=== PATIENT | male | born 1970 | race African-American/Black ===

== ENCOUNTER 2017-08-09 21:37 | Emergency (ER) | payer MEDICAID ==
[~2017-08-09] VITALS: Ht 177.8 cm; Wt 118.0 kg
[~2017-08-09 21:37] MED LIST: ASPI-1159 PO; FAMO20TA8 PO
[2017-08-10] MEDS ORDERED: SODIUM CHLORIDE 0.9% 1,000 ML IV ONE (00:08)
[2017-08-10] MEDS ORDERED: MORPHINE SULFATE 4 MG/ML CPJ (NOT FOR IM USE) IV STA (00:08)
[2017-08-10] MEDS ORDERED: ONDANSETRON HCL 4MG/2ML VIAL IV STA (00:08)
[2017-08-10] MEDS ORDERED: TETANUS, DIPHTHERIA, PERTUSSIS VAC/PF 0.5ML (>7YR OLD) IM ONE (00:15)
[2017-08-10] MEDS ORDERED: CEFAZOLIN 1000MG PREMIX 50 ML IV ONE (00:15)
[2017-08-10 00:51] LABS: BASOPHILS % 0.9 % (0.0-2.0); CHLORIDE 107 mEq/L (98-107); EOSINOPHILS % 1.1 % (0.0-5.0); HEMATOCRIT. 39.8 % (42.0-52.0); HEMOGLOBIN. 13.8 g/dL (14.0-18.0); MEAN CORPUSCULAR HEMOGLOBIN 29.9 pg (28.0-32.0); MEAN CORPUSCULAR VOLUME 86.5 fL (80.0-94.0); MEAN PLATELET VOLUME 9.6 fl (7.4-10.4); MONOCYTES % 6.9 % (2.0-8.0); NEUTROPHILS % 57.1 % (40.0-76.0); PLATELET 246 x1000/uL (130-400); RED BLOOD CELL COUNT 4.61 mill/uL (4.7-6.1); RED CELL DISTRIBUTION WIDTH 13.4 % (11.6-14.6)
[2017-08-10 11:07] VITALS: BP 144/84
== END 2017-08-10 11:09 | disposition home or self-care (01) ==
LOC: ER 21:37
DX: S02.2XXA Fracture of nasal bones, initial encounter for closed fracture (principal); S01.511A Laceration without foreign body of lip, initial encounter; S03.2XXA Dislocation of tooth, initial encounter; I10 Essential (primary) hypertension; F32.9 Major depressive disorder, single episode, unspecified; F10.20 Alcohol dependence, uncomplicated; Y09 Assault by unspecified means; Z79.82 Long term (current) use of aspirin; Y93.89 Activity, other specified; Y92.89 Other specified places as the place of occurrence of the external cause; Y99.8 Other external cause status
CPT/HCPCS: 36415; 70450; 70486; 71045; 72125; 80053; 85025; 90471; 90715; 96365; 96375; 99291; J0690; J2270; J2405; J7030; Z7610

== ENCOUNTER 2017-10-18 18:25 | Emergency (ER) | payer MEDICAID ==
[~2017-10-18] VITALS: Ht 177.8 cm; Wt 118.0 kg
[2017-10-18 21:13] LABS: BASOPHILS % 1.5 % (0.0-2.0); EOSINOPHILS % 1.5 % (0.0-5.0); HEMATOCRIT. 39.6 % (42.0-52.0); LYMPHOCYTES % 40.2 % (20.0-50.0); MEAN CORPUSCULAR HEMOGLOBIN 27.9 pg (28.0-32.0); MEAN CORPUSCULAR VOLUME 84.8 fL (80.0-94.0); MEAN PLATELET VOLUME 9.5 fl (7.4-10.4); MONOCYTES % 11.3 % (2.0-8.0); NEUTROPHILS % 45.5 % (40.0-76.0); PLATELET 192 x1000/uL (130-400); RED BLOOD CELL COUNT 4.67 mill/uL (4.7-6.1); RED CELL DISTRIBUTION WIDTH 14.7 % (11.6-14.6)
[2017-10-18 21:16] LABS: CHLORIDE 103 mEq/L (98-107)
[2017-10-18 21:20] LABS: ETHANOL BLOOD 128 mg/dL
[2017-10-19 00:02] VITALS: BP 152/90
== END 2017-10-19 00:02 | disposition home or self-care (01) ==
LOC: ER 20:31
DX: R07.9 Chest pain, unspecified (principal); I10 Essential (primary) hypertension; F17.200 Nicotine dependence, unspecified, uncomplicated; J98.11 Atelectasis; Z79.82 Long term (current) use of aspirin
CPT/HCPCS: 36415; 71045; 80053; 84484; 85025; 85379; 93005; 99285; G0482; Z7610

== ENCOUNTER 2017-10-28 05:43 | Emergency (ER) | payer MEDICAID ==
[~2017-10-28] VITALS: Ht 188 cm; Wt 91.0 kg
[2017-10-28] MEDS ORDERED: SODIUM CHLORIDE 0.9% 1,000 ML IV ONE (07:01)
[2017-10-28 07:36] LABS: BASOPHILS % 1.7 % (0.0-2.0); EOSINOPHILS % 3.1 % (0.0-5.0); HEMATOCRIT. 41.2 % (42.0-52.0); HEMOGLOBIN. 13.5 g/dL (14.0-18.0); LYMPHOCYTES % 40.1 % (20.0-50.0); MEAN CORPUSCULAR HEMOGLOBIN 28.1 pg (28.0-32.0); MEAN CORPUSCULAR VOLUME 85.6 fL (80.0-94.0); MEAN PLATELET VOLUME 9.2 fl (7.4-10.4); NEUTROPHILS % 42.1 % (40.0-76.0); PLATELET 165 x1000/uL (130-400); RED BLOOD CELL COUNT 4.82 mill/uL (4.7-6.1); RED CELL DISTRIBUTION WIDTH 15.5 % (11.6-14.6)
[2017-10-28 07:51] LABS: CHLORIDE 107 mEq/L (98-107)
[2017-10-28 07:57] LABS: ETHANOL BLOOD 141 mg/dL
[2017-10-28 08:31] LABS: CLARITY URINE CLEAR (CLEAR); COLOR URINE YELLOW (YELLOW); KETONES URINE TRACE (NEGATIVE); LEUKOCYTE ESTERASE URINE NEGATIVE (NEGATIVE); NITRITE URINE NEGATIVE (NEGATIVE); OCCULT BLOOD URINE NEGATIVE (NEGATIVE); PROTEIN URINE NEGATIVE (NEGATIVE); UROBILINOGEN URINE 0.2 E.U./dL (0.2-1.0)
[2017-10-28 08:58] LABS: *AMPHETAMINES SCREEN URINE NEGATIVE (NEGATIVE)
[2017-10-28 08:59] LABS: *BARBITURATES SCREEN URINE NEGATIVE (NEGATIVE); *BENZODIAZEPINES SCREEN URINE NEGATIVE (NEGATIVE); *COCAINE SCREEN URINE NEGATIVE (NEGATIVE); METHADONE URINE SCREEN NEGATIVE (NEGATIVE); OPIATES URINE SCREEN NEGATIVE (NEGATIVE); PHENCYCLIDINE URINE SCREEN NEGATIVE (NEGATIVE)
[2017-10-28 09:00] LABS: CANNABINOID URINE SCREEN NEGATIVE (NEGATIVE)
[2017-10-28] MEDS ORDERED: KETOROLAC 30MG/ML VIAL IV STA (09:42)
[2017-10-28 11:17] VITALS: BP 144/90
== END 2017-10-28 11:36 | disposition home or self-care (01) ==
LOC: ER 05:57
DX: F10.10 Alcohol abuse, uncomplicated (principal); Y90.6 Blood alcohol level of 120-199 mg/100 ml; M79.1 Myalgia; F15.10 Other stimulant abuse, uncomplicated; F12.90 Cannabis use, unspecified, uncomplicated; F17.210 Nicotine dependence, cigarettes, uncomplicated; I10 Essential (primary) hypertension; Z98.890 Other specified postprocedural states
CPT/HCPCS: 36415; 71045; 80053; 80305; 80307; 80329; 81003; 84484; 85025; 93005; 96374; 99285; G0482; J1885; J7030; Z7610

== ENCOUNTER 2017-10-30 11:38 | Emergency (ER) | payer MEDICAID ==
[~2017-10-30] VITALS: Ht 177.8 cm; Wt 88.0 kg
[2017-10-30 12:22] LABS: BASOPHILS % 1.1 % (0.0-2.0); EOSINOPHILS % 1.6 % (0.0-5.0); HEMATOCRIT. 37.7 % (42.0-52.0); HEMOGLOBIN. 12.4 g/dL (14.0-18.0); LYMPHOCYTES % 41.6 % (20.0-50.0); MEAN CORPUSCULAR HEMOGLOBIN 27.9 pg (28.0-32.0); MEAN CORPUSCULAR VOLUME 84.5 fL (80.0-94.0); MEAN PLATELET VOLUME 9.1 fl (7.4-10.4); MONOCYTES % 9.5 % (2.0-8.0); NEUTROPHILS % 46.2 % (40.0-76.0); PLATELET 198 x1000/uL (130-400); RED BLOOD CELL COUNT 4.46 mill/uL (4.7-6.1); RED CELL DISTRIBUTION WIDTH 15.9 % (11.6-14.6)
[2017-10-30 12:28] LABS: CHLORIDE 107 mEq/L (98-107)
[2017-10-30 12:32] LABS: ETHANOL BLOOD 243 mg/dL; INR 1.1; PARTIAL THROMBOPLASTIN TIME 25.5 sec (23.4-31.0); PROTHROMBIN TIME 11.7 sec (9.4-11.6)
[2017-10-30] MEDS ORDERED: SODIUM CHLORIDE 0.9% 1,000 ML IV ONE (12:46)
[2017-10-30] MEDS ORDERED: ONDANSETRON HCL 4MG/2ML VIAL IV STA (12:46)
[2017-10-30 14:22] LABS: *AMPHETAMINES SCREEN URINE NEGATIVE (NEGATIVE); *BARBITURATES SCREEN URINE NEGATIVE (NEGATIVE); *BENZODIAZEPINES SCREEN URINE NEGATIVE (NEGATIVE); *COCAINE SCREEN URINE NEGATIVE (NEGATIVE)
[2017-10-30 14:23] LABS: CANNABINOID URINE SCREEN NEGATIVE (NEGATIVE); METHADONE URINE SCREEN NEGATIVE (NEGATIVE); OPIATES URINE SCREEN NEGATIVE (NEGATIVE); PHENCYCLIDINE URINE SCREEN NEGATIVE (NEGATIVE)
[2017-10-30 17:38] VITALS: BP 132/68
== END 2017-10-30 17:54 | disposition home or self-care (01) ==
LOC: ER 11:38
DX: T51.0X1A Toxic effect of ethanol, accidental (unintentional), initial encounter (principal); G92 Toxic encephalopathy; R07.89 Other chest pain; J98.11 Atelectasis; I10 Essential (primary) hypertension; D64.9 Anemia, unspecified; D72.819 Decreased white blood cell count, unspecified; E83.51 Hypocalcemia; R73.9 Hyperglycemia, unspecified; E46 Unspecified protein-calorie malnutrition; F17.200 Nicotine dependence, unspecified, uncomplicated; Y90.8 Blood alcohol level of 240 mg/100 ml or more; Z68.27 Body mass index [BMI] 27.0-27.9, adult; Y92.89 Other specified places as the place of occurrence of the external cause
CPT/HCPCS: 36415; 71045; 80053; 80305; 83690; 83880; 84484; 85025; 85610; 85730; 93005; 96374; 99285; G0482; J7030

== ENCOUNTER 2017-10-31 00:09 | Emergency (ER) | payer MEDICAID ==
[~2017-10-31] VITALS: Ht 177.8 cm; Wt 113.0 kg
[2017-10-31] MEDS ORDERED: ONDANSETRON HCL 4MG/2ML VIAL IV ONE (02:15)
[2017-10-31] MEDS ORDERED: SODIUM CHLORIDE 0.9% 1,000 ML IV ONE (02:15)
[2017-10-31 05:00] VITALS: BP 113/80
== END 2017-10-31 06:14 | disposition home or self-care (01) ==
LOC: ER 00:09
DX: F10.229 Alcohol dependence with intoxication, unspecified (principal); I10 Essential (primary) hypertension; Y90.8 Blood alcohol level of 240 mg/100 ml or more; Z79.82 Long term (current) use of aspirin
CPT/HCPCS: 36415; 96374; 99284; G0482; J2405; J7030; Z7610

== ENCOUNTER 2017-11-08 19:19 | Emergency (ER) | payer MEDICAID ==
[~2017-11-08] VITALS: Ht 180.3 cm; Wt 100.0 kg
[2017-11-08] MEDS ORDERED: IBUPROFEN 600MG TABLET PO ONE (20:45)
[2017-11-08 21:11] VITALS: BP 148/88
== END 2017-11-09 07:04 | disposition home or self-care (01) ==
LOC: ER 19:19
DX: F10.129 Alcohol abuse with intoxication, unspecified (principal); Y90.4 Blood alcohol level of 80-99 mg/100 ml; I10 Essential (primary) hypertension
CPT/HCPCS: 36415; 99283; G0482

== ENCOUNTER 2017-11-11 10:37 | Emergency (ER) | payer MEDICAID ==
[~2017-11-11] VITALS: Ht 175.3 cm; Wt 114.0 kg
[2017-11-11] MEDS ORDERED: SODIUM CHLORIDE 0.9% 1,000 ML IV ONE (10:57)
[2017-11-11 11:36] LABS: BASOPHILS % 1.5 % (0.0-2.0); EOSINOPHILS % 2.8 % (0.0-5.0); HEMATOCRIT. 36.1 % (42.0-52.0); HEMOGLOBIN. 11.9 g/dL (14.0-18.0); LYMPHOCYTES % 35.8 % (20.0-50.0); MEAN CORPUSCULAR HEMOGLOBIN 28.1 pg (28.0-32.0); MEAN CORPUSCULAR VOLUME 85.1 fL (80.0-94.0); MEAN PLATELET VOLUME 9.1 fl (7.4-10.4); MONOCYTES % 13.7 % (2.0-8.0); NEUTROPHILS % 46.2 % (40.0-76.0); PLATELET 214 x1000/uL (130-400); RED BLOOD CELL COUNT 4.24 mill/uL (4.7-6.1); RED CELL DISTRIBUTION WIDTH 16.9 % (11.6-14.6)
[2017-11-11 11:39] LABS: CHLORIDE 111 mEq/L (98-107)
[2017-11-11 11:41] LABS: INR 1.2; PARTIAL THROMBOPLASTIN TIME 25.4 sec (23.4-31.0)
[2017-11-11 13:55] VITALS: BP 146/75
== END 2017-11-11 14:00 | disposition left against medical advice (07) ==
LOC: ER 10:55
DX: R07.89 Other chest pain (principal); I10 Essential (primary) hypertension; F10.20 Alcohol dependence, uncomplicated; Y90.9 Presence of alcohol in blood, level not specified
CPT/HCPCS: 36415; 71045; 80053; 83690; 84484; 85025; 85610; 85730; 93005; 99285; J7030

== ENCOUNTER 2017-11-13 16:44 | Emergency (ER) | payer MEDICAID ==
[~2017-11-13] VITALS: Ht 185.4 cm; Wt 107.0 kg
[2017-11-13 16:56] VITALS: BP 119/72
== END 2017-11-13 20:45 | disposition left against medical advice (07) ==
LOC: ER 18:00
DX: F10.239 Alcohol dependence with withdrawal, unspecified (principal); Z53.21 Procedure and treatment not carried out due to patient leaving prior to being seen by health care provider

== ENCOUNTER 2017-11-14 08:56 | Emergency (ER) | payer MEDICAID ==
[~2017-11-14] VITALS: Ht 175.3 cm; Wt 100.0 kg
[2017-11-14] MEDS ORDERED: SODIUM CHLORIDE 0.9% 1,000 ML IV ONE (09:30)
[2017-11-14 09:41] LABS: BASOPHILS % 0.3 % (0.0-2.0); EOSINOPHILS % 2.4 % (0.0-5.0); HEMATOCRIT. 36.4 % (42.0-52.0); HEMOGLOBIN. 12.1 g/dL (14.0-18.0); LYMPHOCYTES % 44.7 % (20.0-50.0); MEAN CORPUSCULAR HEMOGLOBIN 27.8 pg (28.0-32.0); MEAN CORPUSCULAR VOLUME 83.6 fL (80.0-94.0); MEAN PLATELET VOLUME 8.5 fl (7.4-10.4); MONOCYTES % 10.2 % (2.0-8.0); NEUTROPHILS % 42.4 % (40.0-76.0); PLATELET 213 x1000/uL (130-400); RED BLOOD CELL COUNT 4.35 mill/uL (4.7-6.1); RED CELL DISTRIBUTION WIDTH 15.9 % (11.6-14.6)
[2017-11-14 09:47] LABS: CHLORIDE 109 mEq/L (98-107)
[2017-11-14 09:50] LABS: INR 1.2; PARTIAL THROMBOPLASTIN TIME 25.6 sec (23.4-31.0)
[2017-11-14 12:14] LABS: *AMPHETAMINES SCREEN URINE NEGATIVE (NEGATIVE); *BARBITURATES SCREEN URINE NEGATIVE (NEGATIVE)
[2017-11-14 12:15] LABS: *BENZODIAZEPINES SCREEN URINE NEGATIVE (NEGATIVE); *COCAINE SCREEN URINE NEGATIVE (NEGATIVE); CANNABINOID URINE SCREEN NEGATIVE (NEGATIVE); METHADONE URINE SCREEN NEGATIVE (NEGATIVE); OPIATES URINE SCREEN NEGATIVE (NEGATIVE); PHENCYCLIDINE URINE SCREEN NEGATIVE (NEGATIVE)
[2017-11-14 13:10] VITALS: BP 118/87
== END 2017-11-14 13:29 | disposition home or self-care (01) ==
LOC: ER 08:56
DX: T51.0X1A Toxic effect of ethanol, accidental (unintentional), initial encounter (principal); R07.9 Chest pain, unspecified; I10 Essential (primary) hypertension; Z79.82 Long term (current) use of aspirin; Y92.89 Other specified places as the place of occurrence of the external cause
CPT/HCPCS: 36415; 70450; 71045; 80053; 80305; 83690; 84484; 85025; 85610; 85730; 93005; 96360; 96361; 99285; G0482; J7030

== ENCOUNTER 2017-11-15 02:19 | Emergency (ER) | payer MEDICAID ==
[~2017-11-15] VITALS: Ht 182.9 cm; Wt 96.0 kg
[2017-11-15] MEDS ORDERED: ASPIRIN 81MG TABLET PO ONE (03:15)
[2017-11-15] MEDS ORDERED: NITROGLYCERIN 0.4MG TABLET SL SL PRN (03:15)
[2017-11-15 03:54] LABS: BASOPHILS % 3.2 % (0.0-2.0); EOSINOPHILS % 2.7 % (0.0-5.0); HEMATOCRIT. 36.2 % (42.0-52.0); LYMPHOCYTES % 46.1 % (20.0-50.0); MEAN CORPUSCULAR VOLUME 84.5 fL (80.0-94.0); MEAN PLATELET VOLUME 9.1 fl (7.4-10.4); MONOCYTES % 9.5 % (2.0-8.0); NEUTROPHILS % 38.5 % (40.0-76.0); PLATELET 205 x1000/uL (130-400); RED BLOOD CELL COUNT 4.28 mill/uL (4.7-6.1); RED CELL DISTRIBUTION WIDTH 16.3 % (11.6-14.6)
[2017-11-15 04:01] LABS: CHLORIDE 108 mEq/L (98-107)
[2017-11-15 04:07] LABS: ETHANOL BLOOD 221 mg/dL
[2017-11-15 04:09] LABS: INR 1.2; PROTHROMBIN TIME 12.1 sec (9.4-11.6)
[2017-11-15 07:30] VITALS: BP 120/77
== END 2017-11-15 07:57 | disposition home or self-care (01) ==
LOC: ER 02:19 → CANBEDREQ 08:51
DX: F10.129 Alcohol abuse with intoxication, unspecified (principal); Y90.7 Blood alcohol level of 200-239 mg/100 ml; R07.89 Other chest pain; R06.02 Shortness of breath; I10 Essential (primary) hypertension; Z91.81 History of falling; Z79.82 Long term (current) use of aspirin; Z79.899 Other long term (current) drug therapy
CPT/HCPCS: 36415; 71045; 80053; 83690; 83880; 84484; 85025; 85610; 93005; 99285; G0482; Z7610

== ENCOUNTER 2017-11-15 18:40 | Emergency (ER) | payer MEDICAID ==
[~2017-11-15] VITALS: Ht 182.9 cm; Wt 110.0 kg
[2017-11-15 22:18] LABS: *AMPHETAMINES SCREEN URINE NEGATIVE (NEGATIVE)
[2017-11-15 22:19] LABS: *BARBITURATES SCREEN URINE NEGATIVE (NEGATIVE); *BENZODIAZEPINES SCREEN URINE NEGATIVE (NEGATIVE); *COCAINE SCREEN URINE NEGATIVE (NEGATIVE); METHADONE URINE SCREEN NEGATIVE (NEGATIVE); OPIATES URINE SCREEN NEGATIVE (NEGATIVE); PHENCYCLIDINE URINE SCREEN NEGATIVE (NEGATIVE)
[2017-11-15 22:20] LABS: CANNABINOID URINE SCREEN NEGATIVE (NEGATIVE)
[2017-11-15 22:43] LABS: BASOPHILS % 2.7 % (0.0-2.0); HEMATOCRIT. 35.9 % (42.0-52.0); LYMPHOCYTES % 36.4 % (20.0-50.0); MEAN CORPUSCULAR HEMOGLOBIN 27.8 pg (28.0-32.0); MEAN CORPUSCULAR VOLUME 83.4 fL (80.0-94.0); MEAN PLATELET VOLUME 8.9 fl (7.4-10.4); MONOCYTES % 10.8 % (2.0-8.0); NEUTROPHILS % 48.1 % (40.0-76.0); PLATELET 177 x1000/uL (130-400); RED CELL DISTRIBUTION WIDTH 16.2 % (11.6-14.6)
[2017-11-15 22:48] LABS: CHLORIDE 105 mEq/L (98-107)
[2017-11-15 22:52] LABS: INR 1.2; PARTIAL THROMBOPLASTIN TIME 26.4 sec (23.4-31.0)
[2017-11-15 22:53] LABS: ETHANOL BLOOD 84 mg/dL
[2017-11-15] MEDS ORDERED: KETOROLAC 30MG/ML VIAL IV ONE (23:00)
[2017-11-16 00:20] VITALS: BP 152/100
== END 2017-11-16 00:23 | disposition home or self-care (01) ==
LOC: ER 18:40
DX: R07.9 Chest pain, unspecified (principal); F10.129 Alcohol abuse with intoxication, unspecified; F31.9 Bipolar disorder, unspecified; I10 Essential (primary) hypertension; M79.606 Pain in leg, unspecified; Z79.82 Long term (current) use of aspirin
CPT/HCPCS: 36415; 71045; 80053; 80305; 83690; 83735; 83880; 84443; 84484; 85025; 85610; 85730; 93005; 96374; 99285; G0482; J1885; Z7610

== ENCOUNTER 2017-11-16 05:06 | Emergency (ER) | payer MEDICAID ==
[~2017-11-16] VITALS: Ht 175.3 cm; Wt 107.0 kg
[2017-11-16 05:36] VITALS: BP 170/90
== END 2017-11-16 08:18 | disposition left against medical advice (07) ==
LOC: ER 05:06
DX: Z53.21 Procedure and treatment not carried out due to patient leaving prior to being seen by health care provider (principal)

== ENCOUNTER 2017-12-12 02:19 | Emergency (ER) | payer MEDICAID ==
[~2017-12-12] VITALS: Ht 172.7 cm; Wt 90.0 kg
[2017-12-12 09:31] LABS: CLARITY URINE CLEAR (CLEAR); COLOR URINE YELLOW (YELLOW); KETONES URINE TRACE (NEGATIVE); LEUKOCYTE ESTERASE URINE NEGATIVE (NEGATIVE); NITRITE URINE NEGATIVE (NEGATIVE); OCCULT BLOOD URINE NEGATIVE (NEGATIVE); PROTEIN URINE NEGATIVE (NEGATIVE); SPECIFIC GRAVITY URINE 1.023 (1.005-1.030); UROBILINOGEN URINE 0.2 E.U./dL (0.2-1.0)
[2017-12-12 10:07] LABS: BASOPHILS % 0.7 % (0.0-2.0); EOSINOPHILS % 1.5 % (0.0-5.0); HEMATOCRIT. 39.3 % (42.0-52.0); MEAN CORPUSCULAR HEMOGLOBIN 28.1 pg (28.0-32.0); MEAN PLATELET VOLUME 9.1 fl (7.4-10.4); MONOCYTES % 12.8 % (2.0-8.0); PLATELET 140 x1000/uL (130-400); RED BLOOD CELL COUNT 4.62 mill/uL (4.7-6.1); RED CELL DISTRIBUTION WIDTH 17.4 % (11.6-14.6)
[2017-12-12 10:13] LABS: CHLORIDE 106 mEq/L (98-107)
[2017-12-12 10:15] LABS: *AMPHETAMINES SCREEN URINE NEGATIVE (NEGATIVE); *BENZODIAZEPINES SCREEN URINE NEGATIVE (NEGATIVE)
[2017-12-12 10:16] LABS: *BARBITURATES SCREEN URINE NEGATIVE (NEGATIVE); *COCAINE SCREEN URINE NEGATIVE (NEGATIVE); CANNABINOID URINE SCREEN NEGATIVE (NEGATIVE); METHADONE URINE SCREEN NEGATIVE (NEGATIVE); OPIATES URINE SCREEN NEGATIVE (NEGATIVE); PHENCYCLIDINE URINE SCREEN NEGATIVE (NEGATIVE)
[2017-12-12 10:17] LABS: INR 1.1
[2017-12-12] MEDS ORDERED: KETOROLAC 30MG/ML VIAL IM ONE (14:30)
[2017-12-12 15:14] LABS: ETHANOL BLOOD < 10 mg/dL
[2017-12-12] MEDS ORDERED: ACETAMINOPHEN WITH CODEINE 300/30MG TABLET PO STA (16:38)
[2017-12-12 16:58] VITALS: BP 175/78
== END 2017-12-12 16:45 | disposition home or self-care (01) ==
LOC: ER 07:30
DX: M79.604 Pain in right leg (principal); B35.3 Tinea pedis; I10 Essential (primary) hypertension; F12.10 Cannabis abuse, uncomplicated; F17.200 Nicotine dependence, unspecified, uncomplicated; Z79.899 Other long term (current) drug therapy
CPT/HCPCS: 36415; 71045; 73590; 73610; 73630; 80053; 80305; 81003; 83690; 83880; 84484; 85025; 85610; 93005; 93971; 96372; 99285; G0482; J1885; Z7610

== ENCOUNTER 2018-01-06 15:17 | Emergency (ER) | payer MEDICAID ==
[~2018-01-06] VITALS: Ht 177.8 cm; Wt 127.0 kg
[2018-01-06 21:29] LABS: HEMATOCRIT. 39.4 % (42.0-52.0); HEMOGLOBIN. 13.2 g/dL (14.0-18.0); MEAN CORPUSCULAR HEMOGLOBIN 28.7 pg (28.0-32.0); MEAN CORPUSCULAR VOLUME 85.9 fL (80.0-94.0); MEAN PLATELET VOLUME 9.2 fl (7.4-10.4); PLATELET 203 x1000/uL (130-400); RED BLOOD CELL COUNT 4.59 mill/uL (4.7-6.1); RED CELL DISTRIBUTION WIDTH 17.8 % (11.6-14.6)
[2018-01-06 21:31] LABS: CHLORIDE 107 mEq/L (98-107)
[2018-01-06 21:32] LABS: INR 1.1; PROTHROMBIN TIME 10.7 sec (9.1-11.1)
[2018-01-06 22:04] LABS: PLATELET ESTIMATE NORMAL
[2018-01-06] MEDS ORDERED: KETOROLAC 30MG/ML VIAL IV ONE (22:15)
[2018-01-06] MEDS ORDERED: SODIUM CHLORIDE 0.9% 1,000 ML IV ONE (22:15)
[2018-01-06 23:07] LABS: CLARITY URINE CLEAR (CLEAR); COLOR URINE YELLOW (YELLOW); KETONES URINE NEGATIVE (NEGATIVE); LEUKOCYTE ESTERASE URINE NEGATIVE (NEGATIVE); NITRITE URINE NEGATIVE (NEGATIVE); OCCULT BLOOD URINE NEGATIVE (NEGATIVE); PROTEIN URINE NEGATIVE (NEGATIVE); SPECIFIC GRAVITY URINE 1.014 (1.005-1.030); UROBILINOGEN URINE 0.2 E.U./dL (0.2-1.0)
[2018-01-07 02:20] VITALS: BP 134/83
== END 2018-01-07 02:31 | disposition home or self-care (01) ==
LOC: ER 15:17
DX: F10.129 Alcohol abuse with intoxication, unspecified (principal); R10.84 Generalized abdominal pain; R06.83 Snoring; R47.81 Slurred speech; R53.83 Other fatigue; I10 Essential (primary) hypertension; F12.10 Cannabis abuse, uncomplicated; Y90.8 Blood alcohol level of 240 mg/100 ml or more; Z79.82 Long term (current) use of aspirin
CPT/HCPCS: 36415; 74176; 80053; 81003; 83690; 85025; 85610; 96374; 99285; G0482; J1885; J7030; Z7610

== ENCOUNTER 2018-07-24 20:49 | Emergency (ER) | payer MEDICAID, MEDICARE ==
[~2018-07-24] VITALS: Ht 182.9 cm; Wt 114.0 kg
[2018-07-24 21:10] VITALS: BP 138/90
== END 2018-07-25 03:27 | disposition left against medical advice (07) ==
LOC: ER 20:49
DX: Z53.21 Procedure and treatment not carried out due to patient leaving prior to being seen by health care provider (principal)

== ENCOUNTER 2018-07-27 18:34 | Emergency (ER) | payer MEDICARE ==
[~2018-07-27] VITALS: Ht 182.9 cm; Wt 95.0 kg
[2018-07-27 18:36] VITALS: BP 139/88
== END 2018-07-27 21:57 | disposition left against medical advice (07) ==
LOC: ER 19:02
DX: Z53.21 Procedure and treatment not carried out due to patient leaving prior to being seen by health care provider (principal)
CPT/HCPCS: 93005

== ENCOUNTER 2018-07-28 06:12 | Emergency (ER) | payer MEDICARE ==
[~2018-07-28] VITALS: Ht 182.9 cm; Wt 95.0 kg
[2018-07-28] MEDS ORDERED: ONDANSETRON 4MG ODT PO ONE (09:45)
[2018-07-28 09:46] LABS: BASOPHILS % 0.4 % (0.0-2.0); HEMATOCRIT. 46.6 % (42.0-52.0); HEMOGLOBIN. 15.6 g/dL (14.0-18.0); LYMPHOCYTES % 11.7 % (20.0-50.0); MEAN CORPUSCULAR HEMOGLOBIN 28.4 pg (28.0-32.0); MEAN CORPUSCULAR VOLUME 84.9 fL (80.0-94.0); MEAN PLATELET VOLUME 9.2 fl (7.4-10.4); MONOCYTES % 9.3 % (2.0-8.0); NEUTROPHILS % 78.6 % (40.0-76.0); PLATELET 206 x1000/uL (130-400); RED BLOOD CELL COUNT 5.48 mill/uL (4.7-6.1); RED CELL DISTRIBUTION WIDTH 14.9 % (11.6-14.6)
[2018-07-28 09:49] LABS: CHLORIDE 101 mEq/L (98-107)
[2018-07-28 09:53] LABS: ETHANOL BLOOD < 10 mg/dL
[2018-07-28 12:00] VITALS: BP 141/97
== END 2018-07-28 13:15 | disposition home or self-care (01) ==
LOC: ER 06:12
DX: R07.89 Other chest pain (principal); K29.20 Alcoholic gastritis without bleeding; F10.10 Alcohol abuse, uncomplicated; I10 Essential (primary) hypertension; F17.200 Nicotine dependence, unspecified, uncomplicated; F12.10 Cannabis abuse, uncomplicated; Z79.899 Other long term (current) drug therapy; Y90.0 Blood alcohol level of less than 20 mg/100 ml
CPT/HCPCS: 36415; 80053; 80320; 84484; 85025; 93005; 99284; Q0162; G0480

== ENCOUNTER 2018-08-15 14:48 | Inpatient (IN) | payer MEDICARE ==
[~2018-08-15] VITALS: Ht 175.3 cm; Wt 100.2 kg
[2018-08-15] MEDS ORDERED: ONDANSETRON HCL 4MG/2ML INJ IV STA (16:17)
[2018-08-15] MEDS ORDERED: SODIUM CHLORIDE 0.9% 1,000 ML IV ONE (16:17)
[2018-08-15 16:39] LABS: BASOPHILS % 0.6 % (0.0-2.0); EOSINOPHILS % 1.6 % (0.0-5.0); LYMPHOCYTES % 24.3 % (20.0-50.0); MEAN CORPUSCULAR HEMOGLOBIN 27.9 pg (28.0-32.0); MEAN CORPUSCULAR VOLUME 83.5 fL (80.0-94.0); MEAN PLATELET VOLUME 7.9 fl (7.4-10.4); MONOCYTES % 11.1 % (2.0-8.0); NEUTROPHILS % 62.4 % (40.0-76.0); PLATELET 349 x1000/uL (130-400); RED BLOOD CELL COUNT 2.44 mill/uL (4.7-6.1); RED CELL DISTRIBUTION WIDTH 14.6 % (11.6-14.6)
[2018-08-15] MEDS ORDERED: MAGNESIUM/ALUMINUM HYDROXIDE/SIMETHICONE 30ML UDC PO STA (16:39)
[2018-08-15] MEDS ORDERED: FAMOTIDINE 20MG/2ML VIAL IV STA (16:39)
[2018-08-15 16:41] LABS: CHLORIDE 101 mEq/L (98-107)
[2018-08-15 16:42] LABS: INR 1.1; PROTHROMBIN TIME 11.5 sec (9.6-11.0)
[2018-08-15 16:44] LABS: HEMATOCRIT. 20.4 % (42.0-52.0); HEMOGLOBIN. 6.8 g/dL (14.0-18.0)
[2018-08-15 17:18] LABS: CLARITY URINE CLEAR (CLEAR); COLOR URINE YELLOW (YELLOW); KETONES URINE NEGATIVE (NEGATIVE); LEUKOCYTE ESTERASE URINE NEGATIVE (NEGATIVE); NITRITE URINE NEGATIVE (NEGATIVE); OCCULT BLOOD URINE NEGATIVE (NEGATIVE); PROTEIN URINE NEGATIVE (NEGATIVE); SPECIFIC GRAVITY URINE 1.002 (1.005-1.030); UROBILINOGEN URINE 0.2 E.U./dL (0.2-1.0)
[2018-08-15] MEDS ORDERED: PANTOPRAZOLE SODIUM 40 MG/VIAL IV ONE (18:30)
[2018-08-15] MEDS ORDERED: LORAZEPAM 2MG/ML CPJ IV PRN (20:30)
[2018-08-15] MEDS ORDERED: ONDANSETRON HCL 4MG/2ML INJ IV PRN (20:30)
[2018-08-15] MEDS ORDERED: MAGNESIUM/ALUMINUM HYDROXIDE/SIMETHICONE 30ML UDC PO PRN (20:30)
[2018-08-15] MEDS ORDERED: DOCUSATE SODIUM 100MG CAPSULE PO PRN (20:30)
[2018-08-15] MEDS ORDERED: ACETAMINOPHEN 325MG TABLET PO PRN (20:30)
[2018-08-15] MEDS ORDERED: IPRATROPIUM/ALBUTEROL 0.5-3(2.5)MG/3ML NEB INH PRN (20:30)
[2018-08-15] MEDS ORDERED: DIPHENHYDRAMINE 50MG/ML VIAL IV PRN (20:30)
[2018-08-15] MEDS ORDERED: CLONIDINE 0.1MG TABLET PO PRN (20:30)
[2018-08-15] MEDS ORDERED: GUAIFENESIN 200MG/10ML SUGAR FREE UDC PO PRN (20:30)
[2018-08-15] MEDS ORDERED: HYDROCODONE/ACETAMINOPHEN 10/325MG TABLET PO PRN (21:00)
[2018-08-15] MEDS ORDERED: HYDROMORPHONE HCL/PF 2MG/ML CPJ IV PRN (21:00)
[2018-08-15 22:12] LABS: CREATINE KINASE 95 IU/L (39-308)
[2018-08-15 22:13] LABS: CREATINE KINASE MB FRACTION 1.3 ng/mL (0.5-3.6)
[2018-08-15 23:20] VITALS: BP 116/68
[2018-08-15] MEDS ORDERED: HYDRALAZINE 20MG/ML VIAL IV PRN (23:29)
[2018-08-16] VITALS (9 sets, daily range): BP systolic 101–113; BP diastolic 61–72
[2018-08-16] MEDS: DEXT 5%/0.45% NACL 1000ML 1,000 ML IV SCH ×2 (00:26→13:43)
[2018-08-16] MEDS: SODIUM CHLORIDE 0.9% INJ 3ML FLUSH IVF SCH ×4 (00:28→21:19)
[2018-08-16 06:33] LABS: BASOPHILS % 0.7 % (0.0-2.0); EOSINOPHILS % 1.7 % (0.0-5.0); HEMATOCRIT. 22.7 % (42.0-52.0); HEMOGLOBIN. 7.6 g/dL (14.0-18.0); LYMPHOCYTES % 21.7 % (20.0-50.0); MEAN CORPUSCULAR HEMOGLOBIN 27.7 pg (28.0-32.0); MEAN CORPUSCULAR VOLUME 83.2 fL (80.0-94.0); MEAN PLATELET VOLUME 8.2 fl (7.4-10.4); NEUTROPHILS % 64.9 % (40.0-76.0); PLATELET 331 x1000/uL (130-400); RED BLOOD CELL COUNT 2.73 mill/uL (4.7-6.1); RED CELL DISTRIBUTION WIDTH 14.5 % (11.6-14.6)
[2018-08-16 07:12] LABS: CHLORIDE 108 mEq/L (98-107)
[2018-08-16 07:37] LABS: CREATINE KINASE 85 IU/L (39-308)
[2018-08-16 07:41] LABS: CREATINE KINASE MB FRACTION 1.2 ng/mL (0.5-3.6)
[2018-08-16] MEDS ORDERED: PANTOPRAZOLE SODIUM 40 MG/VIAL IV SCH (09:00)
[2018-08-16] MEDS ORDERED: MORPHINE SULFATE 4 MG/ML CPJ (NOT FOR IM USE) IV PRN (12:45)
[2018-08-16] MEDS: NICOTINE 21MG PATCH TD SCH (13:43)
[2018-08-16 16:42] LABS: *AMPHETAMINES SCREEN URINE NEGATIVE (NEGATIVE); *BARBITURATES SCREEN URINE NEGATIVE (NEGATIVE); *BENZODIAZEPINES SCREEN URINE NEGATIVE (NEGATIVE); *COCAINE SCREEN URINE NEGATIVE (NEGATIVE); METHADONE URINE SCREEN NEGATIVE (NEGATIVE); OPIATES URINE SCREEN NEGATIVE (NEGATIVE)
[2018-08-16 16:43] LABS: CANNABINOID URINE SCREEN NEGATIVE (NEGATIVE); PHENCYCLIDINE URINE SCREEN NEGATIVE (NEGATIVE)
[2018-08-16 17:07] LABS: HEMATOCRIT 22.1 % (42.0-52.0); HEMOGLOBIN 7.4 g/dL (14.0-18.0)
[2018-08-16] MEDS: PANTOPRAZOLE SODIUM 40 MG/VIAL IV SCH (21:55)
[2018-08-16 23:15] LABS: HEMATOCRIT 24.4 % (42.0-52.0); HEMOGLOBIN 8.2 g/dL (14.0-18.0)
[2018-08-17 00:27] VITALS: BP 98/68
[2018-08-17] MEDS: SODIUM CHLORIDE 0.9% INJ 3ML FLUSH IVF SCH (05:17)
[2018-08-17 05:54] VITALS: BP 110/68
[2018-08-17 07:20] LABS: HEMATOCRIT 23.3 % (42.0-52.0); MEAN CORPUSCULAR HEMOGLOBIN 28.3 pg (28.0-32.0); MEAN CORPUSCULAR VOLUME 81.7 fL (80.0-94.0); PLATELET 303 x1000/uL (130-400); RED BLOOD CELL COUNT 2.84 mill/uL (4.7-6.1); RED CELL DISTRIBUTION WIDTH 14.4 % (11.6-14.6)
[2018-08-17 07:45] LABS: HEPATITIS B SURFACE ANTIGEN NEGATIVE
[2018-08-17 08:00] VITALS: BP 109/68
[2018-08-17 08:14] LABS: HEPATITIS A AB IGM NEGATIVE (NEGATIVE)
[2018-08-17] MEDS: PANTOPRAZOLE SODIUM 40 MG/VIAL IV SCH (09:25)
[2018-08-17] MEDS: NICOTINE 21MG PATCH TD SCH (09:59)
[2018-08-17 10:00] LABS: T4 FREE 0.87 ng/dL (0.76-1.46)
[2018-08-17 12:00] VITALS: BP 124/72
[2018-08-17] MEDS ORDERED: SODIUM CHLORIDE 0.9% 10ML VIAL ONE (13:00)
[2018-08-17] MEDS ORDERED: MIDAZOLAM HCL 5 MG/5 ML VIAL ONE (13:52)
[2018-08-17] MEDS ORDERED: FENTANYL CITRATE/PF 50MCG/ML 2ML VIAL ONE (13:53)
[2018-08-17] MEDS ORDERED: MIDAZOLAM HCL 5 MG/5 ML VIAL IV NR (13:59)
[2018-08-17] MEDS ORDERED: FENTANYL CITRATE/PF 50MCG/ML 2ML VIAL IV ONE (14:00)
[2018-08-17] MEDS: DEXT 5%/0.45% NACL 1000ML 1,000 ML IV SCH (15:00)
[2018-08-17 15:56] VITALS: BP 124/76
[2018-08-17] MEDS ORDERED: SUCRALFATE 1G TABLET PO SCH (18:00)
[2018-08-18] MEDS ORDERED: FERROUS SULFATE 325MG TABLET PO SCH (09:00)
== END 2018-08-17 18:15 | disposition left against medical advice (07) | DRG 241 ==
LOC: ER 15:08 → 6WST 18:34 → ENRESERV 22:21
PROVIDERS: ADMIT Internal Medicine; ATTEND Internal Medicine
PROC: 30233N1 Transfusion of Nonautologous Red Blood Cells into Peripheral Vein, Percutaneous Approach (ICD-10-PCS; principal; 2018-08-15)
PROC: 0DB68ZX Excision of Stomach, Via Natural or Artificial Opening Endoscopic, Diagnostic (ICD-10-PCS; 2018-08-17)
DX: K25.4 Chronic or unspecified gastric ulcer with hemorrhage (principal); K76.0 Fatty (change of) liver, not elsewhere classified; F20.9 Schizophrenia, unspecified; D50.0 Iron deficiency anemia secondary to blood loss (chronic); E86.0 Dehydration; F32.9 Major depressive disorder, single episode, unspecified; F17.210 Nicotine dependence, cigarettes, uncomplicated; K29.21 Alcoholic gastritis with bleeding; Z53.21 Procedure and treatment not carried out due to patient leaving prior to being seen by health care provider; K21.9 Gastro-esophageal reflux disease without esophagitis; I10 Essential (primary) hypertension; K44.9 Diaphragmatic hernia without obstruction or gangrene; Z87.11 Personal history of peptic ulcer disease; Z79.82 Long term (current) use of aspirin; Z79.899 Other long term (current) drug therapy; K29.71 Gastritis, unspecified, with bleeding
CPT/HCPCS: 36415; 71045; 74176; 76705; 80061; 80305; 82550; 82553; 83540; 83550; 84439; 84443; 84484; 85014; 85018; 85027; 86705; 86709; 86803; 86850; 86900; 86920; 87340; 88305; 88313; 93005; 93970; 96374; 96375; 99291; C9113; J2250; J2405; J3010; J3490; J7030; J7040; J7050; P9016; P9021

== ENCOUNTER 2018-10-12 15:54 | Emergency (ER) | payer MEDICARE ==
[~2018-10-12] VITALS: Ht 177.8 cm; Wt 74.0 kg
[~2018-10-12 15:54] MED LIST changes: -ASPI-1159 PO; +ASPI-1393 PO
[2018-10-12 18:04] VITALS: BP 144/82
== END 2018-10-12 18:55 | disposition left against medical advice (07) ==
LOC: ER 15:54
DX: F41.9 Anxiety disorder, unspecified (principal); Z53.21 Procedure and treatment not carried out due to patient leaving prior to being seen by health care provider
CPT/HCPCS: 93005

== ENCOUNTER 2019-02-28 09:32 | Emergency (ER) | payer MEDICARE ==
[~2019-02-28] VITALS: Ht 172.7 cm; Wt 100.0 kg
[2019-02-28 10:16] LABS: EOSINOPHILS % 2.5 % (0.0-5.0); HEMATOCRIT. 31.7 % (42.0-52.0); HEMOGLOBIN. 9.4 g/dL (14.0-18.0); LYMPHOCYTES % 30.1 % (20.0-50.0); MEAN PLATELET VOLUME 8.6 fl (7.4-10.4); MONOCYTES % 12.1 % (2.0-8.0); NEUTROPHILS % 54.3 % (40.0-76.0); PLATELET 221 x1000/uL (130-400); RED BLOOD CELL COUNT 5.19 mill/uL (4.7-6.1); RED CELL DISTRIBUTION WIDTH 18.8 % (11.6-14.6)
[2019-02-28 10:21] LABS: CHLORIDE 107 mEq/L (98-107)
[2019-02-28 10:25] LABS: ETHANOL BLOOD < 10 mg/dL
[2019-02-28] MEDS ORDERED: FAMOTIDINE 20MG/2ML VIAL IV STA (10:36)
[2019-02-28] MEDS ORDERED: SODIUM CHLORIDE 0.9% 1,000 ML IV ONE (10:36)
[2019-02-28] MEDS ORDERED: MORPHINE SULFATE 4 MG/ML CPJ (NOT FOR IM USE) IV STA (10:36)
[2019-02-28] MEDS ORDERED: ONDANSETRON HCL 4MG/2ML INJ IV STA (10:36)
[2019-02-28 10:54] LABS: CLARITY URINE CLEAR (CLEAR); COLOR URINE YELLOW (YELLOW); KETONES URINE TRACE (NEGATIVE); LEUKOCYTE ESTERASE URINE NEGATIVE (NEGATIVE); NITRITE URINE NEGATIVE (NEGATIVE); OCCULT BLOOD URINE NEGATIVE (NEGATIVE); PH URINE 5.5 (4.5-8.0); PROTEIN URINE TRACE (NEGATIVE); SPECIFIC GRAVITY URINE 1.035 (1.005-1.030); UROBILINOGEN URINE 0.2 E.U./dL (0.2-1.0)
[2019-02-28 11:06] LABS: PLATELET ESTIMATE NORMAL
[2019-02-28 11:15] LABS: *AMPHETAMINES SCREEN URINE NEGATIVE (NEGATIVE)
[2019-02-28 11:16] LABS: *BARBITURATES SCREEN URINE NEGATIVE (NEGATIVE); *BENZODIAZEPINES SCREEN URINE NEGATIVE (NEGATIVE); *COCAINE SCREEN URINE NEGATIVE (NEGATIVE); METHADONE URINE SCREEN NEGATIVE (NEGATIVE); OPIATES URINE SCREEN NEGATIVE (NEGATIVE)
[2019-02-28 11:17] LABS: CANNABINOID URINE SCREEN NEGATIVE (NEGATIVE); PHENCYCLIDINE URINE SCREEN NEGATIVE (NEGATIVE)
[2019-02-28 12:25] VITALS: BP 155/90
== END 2019-02-28 12:26 | disposition home or self-care (01) ==
LOC: ER 09:32
DX: R10.13 Epigastric pain (principal); R07.89 Other chest pain; I10 Essential (primary) hypertension
CPT/HCPCS: 36415; 71045; 80053; 80305; 80320; 81003; 83690; 83880; 84484; 85025; 93005; 96374; 96375; 99284; J2270; J2405; J3490; J7030; G0480

== ENCOUNTER 2019-06-13 01:29 | Emergency (ER) | payer MEDICARE ==
[~2019-06-13] VITALS: Ht 185.4 cm; Wt 105.0 kg
[~2019-06-13 01:29] MED LIST changes: -ASPI-1393 PO; +ASPI-1497 PO
[2019-06-13] MEDS ORDERED: VISCOUS LIDOCAINE 2% 15 ML UDC PO ONE (02:30)
[2019-06-13] MEDS ORDERED: ASPIRIN 81MG TABLET PO ONE (02:30)
[2019-06-13] MEDS ORDERED: MAGNESIUM/ALUMINUM HYDROXIDE/SIMETHICONE 30ML UDC PO ONE (02:30)
[2019-06-13 02:58] LABS: CHLORIDE 102 mEq/L (98-107)
[2019-06-13 03:02] LABS: ETHANOL BLOOD < 10 mg/dL
[2019-06-13 03:04] LABS: BASOPHILS % 1.1 % (0.0-2.0); EOSINOPHILS % 0.8 % (0.0-5.0); HEMATOCRIT. 38.6 % (42.0-52.0); HEMOGLOBIN. 11.9 g/dL (14.0-18.0); MEAN CORPUSCULAR HEMOGLOBIN 19.9 pg (28.0-32.0); MEAN CORPUSCULAR VOLUME 64.4 fL (80.0-94.0); MONOCYTES % 11.4 % (2.0-8.0); NEUTROPHILS % 64.7 % (40.0-76.0); PLATELET 238 x1000/uL (130-400); RED CELL DISTRIBUTION WIDTH 19.7 % (11.6-14.6)
[2019-06-13 03:17] LABS: PLATELET ESTIMATE NORMAL
[2019-06-13 06:31] VITALS: BP 154/68
== END 2019-06-13 06:37 | disposition home or self-care (01) ==
LOC: ER 01:29
DX: R07.89 Other chest pain (principal); I10 Essential (primary) hypertension; F10.10 Alcohol abuse, uncomplicated; E11.9 Type 2 diabetes mellitus without complications; Y90.8 Blood alcohol level of 240 mg/100 ml or more
CPT/HCPCS: 36415; 71045; 80053; 80320; 83880; 84484; 85025; 93005; 99284; Z7610; G0480

== ENCOUNTER 2019-06-18 10:16 | Emergency (ER) | payer MEDICARE ==
[~2019-06-18] VITALS: Ht 170.2 cm; Wt 107.0 kg
[2019-06-18] MEDS ORDERED: CLONIDINE 0.2MG TABLET PO ONE (10:45)
[2019-06-18] MEDS ORDERED: VISCOUS LIDOCAINE 2% 15 ML UDC PO ONE (10:45)
[2019-06-18] MEDS ORDERED: MAGNESIUM/ALUMINUM HYDROXIDE/SIMETHICONE 30ML UDC PO ONE (10:45)
[2019-06-18 11:08] LABS: BASOPHILS % 0.2 % (0.0-2.0); EOSINOPHILS % 1.2 % (0.0-5.0); HEMATOCRIT. 37.3 % (42.0-52.0); HEMOGLOBIN. 11.6 g/dL (14.0-18.0); MEAN CORPUSCULAR HEMOGLOBIN 20.2 pg (28.0-32.0); MEAN CORPUSCULAR VOLUME 65.1 fL (80.0-94.0); MEAN PLATELET VOLUME 8.6 fl (7.4-10.4); MONOCYTES % 10.4 % (2.0-8.0); NEUTROPHILS % 60.2 % (40.0-76.0); PLATELET 228 x1000/uL (130-400); RED BLOOD CELL COUNT 5.74 mill/uL (4.7-6.1); RED CELL DISTRIBUTION WIDTH 19.9 % (11.6-14.6)
[2019-06-18 11:15] LABS: CHLORIDE 108 mEq/L (98-107); INR 1.2; PROTHROMBIN TIME 12.3 sec (9.6-11.0)
[2019-06-18] MEDS ORDERED: LABETALOL 5MG/ML SYR 20 MG/4 ML SYRINGE IV ONE (11:30)
[2019-06-18] MEDS ORDERED: ONDANSETRON HCL 4MG/2ML INJ IV ONE (11:30)
[2019-06-18 11:32] LABS: PLATELET ESTIMATE NORMAL
[2019-06-18 21:38] VITALS: BP 138/81
== END 2019-06-18 22:01 | disposition short-term general hospital (02) ==
LOC: ER 10:36 → CANBEDREQ 13:46 → ER 22:01
DX: R07.89 Other chest pain (principal); I16.1 Hypertensive emergency; E11.9 Type 2 diabetes mellitus without complications; I10 Essential (primary) hypertension; F32.9 Major depressive disorder, single episode, unspecified; F17.200 Nicotine dependence, unspecified, uncomplicated
CPT/HCPCS: 36415; 71045; 80053; 82962; 83880; 84484; 85025; 85610; 93005; 96374; 96375; 99285; J2405; J3490

== ENCOUNTER 2019-09-25 12:05 | Emergency (ER) | payer MEDICARE ==
[~2019-09-25] VITALS: Ht 172.7 cm; Wt 85.0 kg
[2019-09-25] MEDS ORDERED: IBUPROFEN 600MG TABLET PO STA (13:06)
[2019-09-25 13:22] LABS: BASOPHILS % 0.9 % (0.0-2.0); EOSINOPHILS % 2.3 % (0.0-5.0); HEMATOCRIT. 34.4 % (42.0-52.0); HEMOGLOBIN. 11.1 g/dL (14.0-18.0); LYMPHOCYTES % 36.9 % (20.0-50.0); MEAN CORPUSCULAR HEMOGLOBIN 22.2 pg (28.0-32.0); MEAN CORPUSCULAR VOLUME 68.7 fL (80.0-94.0); MEAN PLATELET VOLUME 9.2 fl (7.4-10.4); MONOCYTES % 10.3 % (2.0-8.0); NEUTROPHILS % 49.6 % (40.0-76.0); PLATELET 201 x1000/uL (130-400); RED BLOOD CELL COUNT 5.01 mill/uL (4.7-6.1); RED CELL DISTRIBUTION WIDTH 19.4 % (11.6-14.6)
[2019-09-25 13:25] LABS: CHLORIDE 108 mEq/L (98-107)
[2019-09-25 13:28] LABS: ETHANOL BLOOD < 10 mg/dL
[2019-09-25 13:51] LABS: PLATELET ESTIMATE NORMAL
[2019-09-25] MEDS ORDERED: ACETAMINOPHEN 325MG TABLET PO STA (15:24)
[2019-09-25 15:45] LABS: *AMPHETAMINES SCREEN URINE NEGATIVE (NEGATIVE); *BARBITURATES SCREEN URINE NEGATIVE (NEGATIVE); *BENZODIAZEPINES SCREEN URINE NEGATIVE (NEGATIVE); *COCAINE SCREEN URINE NEGATIVE (NEGATIVE); METHADONE URINE SCREEN NEGATIVE (NEGATIVE); OPIATES URINE SCREEN NEGATIVE (NEGATIVE); PHENCYCLIDINE URINE SCREEN NEGATIVE (NEGATIVE)
[2019-09-25 15:46] LABS: CANNABINOID URINE SCREEN NEGATIVE (NEGATIVE)
[2019-09-25 16:15] VITALS: BP 172/85
== END 2019-09-25 16:35 | disposition home or self-care (01) ==
LOC: ER 12:15
DX: R07.89 Other chest pain (principal)
CPT/HCPCS: 36415; 71045; 80053; 80305; 80320; 83880; 84484; 85025; 93005; 99285; G0480

== ENCOUNTER 2019-11-01 22:06 | Emergency (ER) | payer MEDICAID, MEDICARE ==
[~2019-11-01] VITALS: Ht 177.8 cm; Wt 103.0 kg
[2019-11-01] MEDS ORDERED: ASPIRIN 81MG TABLET PO ONE (23:15)
[2019-11-01 23:28] LABS: CHLORIDE 104 mEq/L (98-107)
[2019-11-01 23:29] LABS: BASOPHILS % 0.7 % (0.0-2.0); EOSINOPHILS % 0.8 % (0.0-5.0); HEMATOCRIT. 39.4 % (42.0-52.0); HEMOGLOBIN. 12.6 g/dL (14.0-18.0); LYMPHOCYTES % 26.8 % (20.0-50.0); MEAN CORPUSCULAR HEMOGLOBIN 22.5 pg (28.0-32.0); MEAN CORPUSCULAR VOLUME 70.4 fL (80.0-94.0); MEAN PLATELET VOLUME 9.1 fl (7.4-10.4); MONOCYTES % 11.3 % (2.0-8.0); NEUTROPHILS % 60.4 % (40.0-76.0); PLATELET 221 x1000/uL (130-400); RED BLOOD CELL COUNT 5.59 mill/uL (4.7-6.1); RED CELL DISTRIBUTION WIDTH 18.7 % (11.6-14.6)
[2019-11-01 23:32] LABS: ETHANOL BLOOD < 10 mg/dL
[2019-11-02 02:54] VITALS: BP 133/97
== END 2019-11-02 02:56 | disposition home or self-care (01) ==
LOC: ER 22:06
DX: R07.89 Other chest pain (principal); I10 Essential (primary) hypertension; F10.20 Alcohol dependence, uncomplicated; Y90.0 Blood alcohol level of less than 20 mg/100 ml
CPT/HCPCS: 36415; 71045; 80053; 80320; 83036; 83880; 84484; 85025; 93005; 99285; Z7610; G0480

== ENCOUNTER 2020-09-18 12:41 | Inpatient (IN) | payer MEDICAID ==
[~2020-09-18] VITALS: Ht 213.4 cm; Wt 99.8 kg
[2020-09-18] MEDS ORDERED: ONDANSETRON HCL 4MG/2ML INJ IV STA (13:03)
[2020-09-18] MEDS ORDERED: SODIUM CHLORIDE 0.9% 1,000 ML IV ONE (13:15)
[2020-09-18 13:58] LABS: BASOPHILS % 1.2 % (0.0-2.0); EOSINOPHILS % 4.6 % (0.0-5.0); HEMATOCRIT. 32.4 % (42.0-52.0); HEMOGLOBIN. 10.1 g/dL (14.0-18.0); LYMPHOCYTES % 33.7 % (20.0-50.0); MEAN CORPUSCULAR HEMOGLOBIN 20.2 pg (28.0-32.0); MEAN CORPUSCULAR VOLUME 64.9 fL (80.0-94.0); MEAN PLATELET VOLUME 8.5 fl (7.4-10.4); MONOCYTES % 8.5 % (2.0-8.0); PLATELET 188 x1000/uL (130-400); RED BLOOD CELL COUNT 4.99 mill/uL (4.7-6.1); RED CELL DISTRIBUTION WIDTH 22.9 % (11.6-14.6)
[2020-09-18 14:01] LABS: CHLORIDE 107 mEq/L (98-107)
[2020-09-18 14:03] LABS: INR 1.1; PROTHROMBIN TIME 12.1 sec (9.6-11.0)
[2020-09-18 14:05] LABS: ETHANOL BLOOD 131 mg/dL
[2020-09-18 14:23] LABS: PLATELET ESTIMATE NORMAL
[2020-09-18 15:24] LABS: CLARITY URINE CLEAR (CLEAR); COLOR URINE YELLOW (YELLOW); KETONES URINE TRACE (NEGATIVE); LEUKOCYTE ESTERASE URINE NEGATIVE (NEGATIVE); NITRITE URINE NEGATIVE (NEGATIVE); OCCULT BLOOD URINE NEGATIVE (NEGATIVE); PROTEIN URINE NEGATIVE (NEGATIVE); SPECIFIC GRAVITY URINE 1.021 (1.005-1.030); UROBILINOGEN URINE 0.2 E.U./dL (0.2-1.0)
[2020-09-18] MEDS ORDERED: IOHEXOL-300 100 ML BOTTLE ONE (15:58)
[2020-09-18 16:03] LABS: *AMPHETAMINES SCREEN URINE NEGATIVE (NEGATIVE); *BARBITURATES SCREEN URINE NEGATIVE (NEGATIVE); *BENZODIAZEPINES SCREEN URINE NEGATIVE (NEGATIVE); *COCAINE SCREEN URINE NEGATIVE (NEGATIVE)
[2020-09-18 16:04] LABS: CANNABINOID URINE SCREEN NEGATIVE (NEGATIVE); METHADONE URINE SCREEN NEGATIVE (NEGATIVE); OPIATES URINE SCREEN NEGATIVE (NEGATIVE); PHENCYCLIDINE URINE SCREEN NEGATIVE (NEGATIVE)
[2020-09-18] MEDS ORDERED: LACTATED RINGERS 1,000 ML IV SCH (17:30)
[2020-09-18] MEDS ORDERED: KETOROLAC 15MG/ML VIAL IV ONE (17:30)
[2020-09-19 01:38] VITALS: BP 161/93
[2020-09-19] MEDS ORDERED: LORAZEPAM 2MG/ML CPJ IV PRN (02:15)
[2020-09-19] MEDS ORDERED: MORPHINE SULFATE 2 MG/ML CPJ (NOT FOR IM USE) IV PRN (02:15)
[2020-09-19] MEDS ORDERED: ONDANSETRON HCL 4MG/2ML INJ IV PRN (02:15)
[2020-09-19] MEDS: DEXT 5%/0.45% NACL KCL 20MEQ/L 1,000 ML IV SCH ×3 (05:33→21:02)
[2020-09-19] MEDS: FOLIC ACID 1 MG, THIAMINE HCL 100 MG, MVI, ADULT NO.1 10 ML in DEXTROSE 5% WATER 1,000 ML IV SCH (05:39)
[2020-09-19] MEDS: PANTOPRAZOLE SODIUM 40 MG/VIAL IV SCH (08:13)
[2020-09-19 09:46] LABS: BASOPHILS % 0.9 % (0.0-2.0); EOSINOPHILS % 8.6 % (0.0-5.0); HEMATOCRIT. 29.8 % (42.0-52.0); LYMPHOCYTES % 33.9 % (20.0-50.0); MEAN CORPUSCULAR VOLUME 66.5 fL (80.0-94.0); MEAN PLATELET VOLUME 8.6 fl (7.4-10.4); MONOCYTES % 11.2 % (2.0-8.0); NEUTROPHILS % 45.4 % (40.0-76.0); PLATELET 148 x1000/uL (130-400); RED BLOOD CELL COUNT 4.48 mill/uL (4.7-6.1); RED CELL DISTRIBUTION WIDTH 22.8 % (11.6-14.6)
[2020-09-19 10:13] LABS: CHLORIDE 107 mEq/L (98-107)
[2020-09-19 10:21] LABS: AMYLASE 41 IU/L (25-115); LDL CHOLESTEROL 64 mg/dL (5-100)
[2020-09-19 10:22] LABS: HDL CHOLESTEROL 45 mg/dL (40-59)
[2020-09-19] MEDS ORDERED: HYDROCODONE/ACETAMINOPHEN 5/325MG TABLET PO PRN (11:15)
[2020-09-19] MEDS ORDERED: ACETAMINOPHEN 325MG TABLET PO PRN (11:15)
[2020-09-19] MEDS ORDERED: DOCUSATE SODIUM 100MG CAPSULE PO PRN (11:15)
[2020-09-19] MEDS ORDERED: MAGNESIUM/ALUMINUM HYDROXIDE/SIMETHICONE 30ML UDC PO PRN (11:15)
[2020-09-19] MEDS ORDERED: CLONIDINE 0.1MG TABLET PO PRN (11:15)
[2020-09-19] MEDS: ENOXAPARIN 40MG/0.4ML SYR SUBCUT SCH (12:09)
[2020-09-19 13:55] VITALS: BP 158/97
[2020-09-19 15:55] VITALS: BP 152/90
[2020-09-19 20:00] VITALS: BP 139/84
[2020-09-19] MEDS ORDERED: DIPHENHYDRAMINE 50MG CAPSULE PO PRN (21:00)
[2020-09-19] MEDS: ZOLPIDEM TARTRATE 5MG TABLET PO PRN (21:02)
[2020-09-20] VITALS: BP 140/80
[2020-09-20] MEDS: DEXT 5%/0.45% NACL KCL 20MEQ/L 1,000 ML IV SCH ×2 (03:08→14:38)
[2020-09-20 04:00] VITALS: BP 149/89
[2020-09-20] MEDS: CHLORDIAZEPOXIDE 25MG CAPSULE PO SCH ×3 (06:44→21:00)
[2020-09-20 07:06] LABS: BASOPHILS % 0.9 % (0.0-2.0); EOSINOPHILS % 8.1 % (0.0-5.0); HEMATOCRIT. 29.5 % (42.0-52.0); LYMPHOCYTES % 32.7 % (20.0-50.0); MEAN CORPUSCULAR HEMOGLOBIN 19.9 pg (28.0-32.0); MEAN CORPUSCULAR VOLUME 65.5 fL (80.0-94.0); MEAN PLATELET VOLUME 8.6 fl (7.4-10.4); MONOCYTES % 12.2 % (2.0-8.0); NEUTROPHILS % 46.1 % (40.0-76.0); PLATELET 141 x1000/uL (130-400)
[2020-09-20 07:53] LABS: CHLORIDE 106 mEq/L (98-107)
[2020-09-20 08:00] VITALS: BP 133/83
[2020-09-20 08:07] LABS: AMYLASE 42 IU/L (25-115)
[2020-09-20 08:11] LABS: PHOSPHORUS 3.1 mg/dL (2.5-4.9)
[2020-09-20 08:13] LABS: TOTAL IRON BINDING CAPACITY 351 ug/dL (250-450)
[2020-09-20 08:28] LABS: FOLIC ACID (FOLATE) SERUM 15.8 ng/mL (>5.38)
[2020-09-20] MEDS: FOLIC ACID 1 MG, THIAMINE HCL 100 MG, MVI, ADULT NO.1 10 ML in DEXTROSE 5% WATER 1,000 ML IV SCH (08:52)
[2020-09-20] MEDS: THIAMINE HCL 100MG TABLET PO SCH (08:53)
[2020-09-20] MEDS: MULTIVITAMINS,THER W-MINERALS TABLET PO SCH (08:53)
[2020-09-20] MEDS: PANTOPRAZOLE SODIUM 40 MG/VIAL IV SCH (08:53)
[2020-09-20] MEDS: ENOXAPARIN 40MG/0.4ML SYR SUBCUT SCH (08:54)
[2020-09-20] MEDS ORDERED: PANTOPRAZOLE SODIUM 40 MG/VIAL IV SCH (09:00)
[2020-09-20 12:00] VITALS: BP 150/87
[2020-09-20 16:00] VITALS: BP 170/90
[2020-09-20] MEDS: FERROUS SULFATE 325MG TABLET PO SCH (17:51)
[2020-09-20] MEDS: DOCUSATE SODIUM 100MG CAPSULE PO SCH (17:51)
[2020-09-20 20:00] VITALS: BP 150/80
[2020-09-20] MEDS: ZOLPIDEM TARTRATE 5MG TABLET PO PRN (20:49)
[2020-09-20] MEDS ORDERED: IRON SUCROSE COMPLEX 100 MG/5 ML ML IV SCH (21:00)
[2020-09-20] MEDS: AMLODIPINE 10MG TABLET PO SCH (21:21)
[2020-09-21] VITALS: BP 140/70
[2020-09-21] MEDS: DEXT 5%/0.45% NACL KCL 20MEQ/L 1,000 ML IV SCH ×2 (00:13→13:22)
[2020-09-21 04:00] VITALS: BP 135/70
[2020-09-21] MEDS: CHLORDIAZEPOXIDE 25MG CAPSULE PO SCH ×2 (05:48→13:23)
[2020-09-21 07:01] LABS: BASOPHILS % 0.9 % (0.0-2.0); EOSINOPHILS % 5.4 % (0.0-5.0); HEMATOCRIT. 30.8 % (42.0-52.0); HEMOGLOBIN. 9.3 g/dL (14.0-18.0); LYMPHOCYTES % 25.9 % (20.0-50.0); MEAN CORPUSCULAR HEMOGLOBIN 19.9 pg (28.0-32.0); MEAN CORPUSCULAR VOLUME 65.7 fL (80.0-94.0); MEAN PLATELET VOLUME 8.6 fl (7.4-10.4); MONOCYTES % 11.4 % (2.0-8.0); NEUTROPHILS % 56.4 % (40.0-76.0); PLATELET 142 x1000/uL (130-400); RED CELL DISTRIBUTION WIDTH 23.3 % (11.6-14.6)
[2020-09-21 07:59] LABS: CHLORIDE 109 mEq/L (98-107)
[2020-09-21 08:00] VITALS: BP 134/85
[2020-09-21] MEDS: DOCUSATE SODIUM 100MG CAPSULE PO SCH (08:26)
[2020-09-21] MEDS: AMLODIPINE 10MG TABLET PO SCH (08:26)
[2020-09-21] MEDS: MULTIVITAMINS,THER W-MINERALS TABLET PO SCH (08:26)
[2020-09-21] MEDS: FERROUS SULFATE 325MG TABLET PO SCH ×2 (08:26→13:24)
[2020-09-21] MEDS: THIAMINE HCL 100MG TABLET PO SCH (08:26)
[2020-09-21] MEDS: ENOXAPARIN 40MG/0.4ML SYR SUBCUT SCH (08:27)
[2020-09-21] MEDS: PANTOPRAZOLE SODIUM 40 MG/VIAL IV SCH (08:27)
[2020-09-21] MEDS: FOLIC ACID 1 MG, THIAMINE HCL 100 MG, MVI, ADULT NO.1 10 ML in DEXTROSE 5% WATER 1,000 ML IV SCH (09:48)
[2020-09-21 12:00] VITALS: BP 128/79
[2020-09-21] MEDS ORDERED: FERR325T23 PO (13:43)
[2020-09-21] MEDS ORDERED: THIA100T72 PO (13:43)
[2020-09-21] MEDS ORDERED: AMLO10TA80 PO (13:43)
[2020-09-21] MEDS ORDERED: DOCU-150 PO (13:43)
[2020-09-21 14:54] VITALS: BP 149/87
[2020-09-21 16:00] VITALS: BP 149/87
== END 2020-09-21 16:33 | disposition home or self-care (01) | DRG 282 ==
LOC: ER 12:41 → 8WST 20:28 → ENRESERV 21:29
PROVIDERS: ADMIT Internal Medicine; ATTEND Internal Medicine
DX: K85.20 Alcohol induced acute pancreatitis without necrosis or infection (principal); E87.2 Acidosis; K76.0 Fatty (change of) liver, not elsewhere classified; D50.9 Iron deficiency anemia, unspecified; I10 Essential (primary) hypertension; F32.9 Major depressive disorder, single episode, unspecified; F17.210 Nicotine dependence, cigarettes, uncomplicated; K21.9 Gastro-esophageal reflux disease without esophagitis; K29.70 Gastritis, unspecified, without bleeding; K44.9 Diaphragmatic hernia without obstruction or gangrene; Z87.11 Personal history of peptic ulcer disease; Z71.41 Alcohol abuse counseling and surveillance of alcoholic
CPT/HCPCS: 36415; 71045; 74177; 76705; 80048; 80053; 80061; 80076; 80305; 80320; 81003; 82150; 82607; 82728; 82746; 83540; 83550; 83605; 83735; 84100; 84484; 85025; 85044; 93005; 93970; 97162; 99291; C1893; C9113; J1650; J1885; J2405; J3411; J3490; J7030; J7070; Q0163; Q9967; G0480

== ENCOUNTER 2022-04-19 09:12 | Emergency (ER) | payer MEDICAID ==
[~2022-04-19] VITALS: Ht 172.7 cm; Wt 109.0 kg
[~2022-04-19 09:12] MED LIST changes: +AMLO10TA80 PO; +DOCU-150 PO; +FERR325T23 PO; +THIA100T72 PO
[2022-04-19] MEDS ORDERED: GABA-529 MT (09:38)
[2022-04-19] MEDS ORDERED: AMLO10TA80 MT (09:38)
[2022-04-19] MEDS ORDERED: CELE100C97 MT (09:38)
[2022-04-19] MEDS ORDERED: ACETAMINOPHEN 325MG TABLET PO ONE (09:45)
[2022-04-19] MEDS ORDERED: KETOROLAC 60MG/2ML VIAL IM ONE (09:45)
[2022-04-19] MEDS ORDERED: AMLODIPINE 10MG TABLET PO ONE (09:45)
[2022-04-19] MEDS ORDERED: AMLODIPINE 10MG TABLET PO NR (10:30)
[2022-04-19] MEDS ORDERED: AMLODIPINE 5MG TABLET PO NR (10:49)
[2022-04-19 12:25] VITALS: BP 174/100
== END 2022-04-19 12:30 | disposition home or self-care (01) ==
LOC: ER 09:12
DX: M54.30 Sciatica, unspecified side (principal); I10 Essential (primary) hypertension; Z79.82 Long term (current) use of aspirin
CPT/HCPCS: 96372; 99283; J1885

== ENCOUNTER 2023-08-02 12:41 | Emergency (ER) | payer MEDICAID, OTHER ==
[~2023-08-02] VITALS: Ht 167.6 cm; Wt 100.0 kg
[~2023-08-02 12:41] MED LIST changes: +AMLO10TA80 MT; +CELE-146 MT; +GABA-529 MT; +IBUP-2029 MT; +TOPUD MT
[2023-08-02 12:44] VITALS: O2SAT 97
[2023-08-02 13:43] LABS: BASOPHILS % 1.1 % (0.0-2.0); EOSINOPHILS % 3.3 % (0.0-5.0); HEMATOCRIT. 44.2 % (42.0-52.0); HEMOGLOBIN. 14.5 g/dL (14.0-18.0); LYMPHOCYTES % 41.8 % (20.0-50.0); MEAN CORPUSCULAR HEMOGLOBIN 26.2 pg (28.0-32.0); MEAN CORPUSCULAR HGB CONC 32.8 g/dL (31.0-37.0); MEAN CORPUSCULAR VOLUME 80.1 fL (80.0-94.0); MEAN PLATELET VOLUME 8.9 fl (7.4-10.4); MONOCYTES % 7.9 % (2.0-8.0); NEUTROPHILS % 45.9 % (40.0-76.0); PLATELET 236 x1000/uL (130-400); RED BLOOD CELL COUNT 5.52 mill/uL (4.7-6.1); WHITE BLOOD COUNT 5.5 x1000/uL (4.5-11.0)
[2023-08-02 13:56] LABS: INR 1.1; PROTHROMBIN TIME 12.5 sec (9.6-11.0)
[2023-08-02 14:05] LABS: ALANINE AMINOTRANSFERASE 41 IU/L (10-49); ALBUMIN 4.8 g/dL (3.2-4.8); ASPARTATE AMINOTRANSFERASE 34 IU/L (<34); BILIRUBIN TOTAL 0.3 mg/dL (0.1-1.0); CALCIUM 8.7 mg/dL (8.7-10.4); CARBON DIOXIDE 22 mEq/L (21-32); CHLORIDE 107 mEq/L (98-107); GLUCOSE 83 mg/dL (70-105); POTASSIUM 4.5 mEq/L (3.5-5.1); PROTEIN TOTAL 8.4 g/dL (6.0-8.3); SODIUM 137 mEq/L (136-145); TROPONIN I HIGH SENSITIVITY 7 ng/L (3.0-53); UREA NITROGEN BLOOD 13 mg/dL (9-23)
[2023-08-02 18:00] VITALS: BP 106/73; PULSE 71; RESP 15
[2023-08-02 19:05] LABS: TROPONIN I HIGH SENSITIVITY 9 ng/L (3.0-53)
== END 2023-08-02 20:00 | disposition left against medical advice (07) ==
LOC: ER 12:41
DX: F10.129 Alcohol abuse with intoxication, unspecified (principal); I10 Essential (primary) hypertension; R51.9 Headache, unspecified; Z79.82 Long term (current) use of aspirin; Z79.899 Other long term (current) drug therapy; Y90.9 Presence of alcohol in blood, level not specified
CPT/HCPCS: 80053; 83690; 85025; 85610; 84484; 36415; 71045; 70450; 72125; 93005; 99285; Z7610 ×2

== ENCOUNTER 2023-09-24 23:14 | Emergency (ER) | payer MEDICAID ==
[~2023-09-24] VITALS: Ht 172.7 cm; Wt 110.0 kg
[2023-09-24 23:17] VITALS: O2SAT 99
[2023-09-25 00:01] LABS: CHLORIDE 106 mEq/L (98-107); POTASSIUM 3.8 mEq/L (3.5-5.1); SODIUM 139 mEq/L (136-145)
[2023-09-25 00:02] LABS: BASOPHILS % 1.3 % (0.0-2.0); CARBON DIOXIDE 24 mEq/L (21-32); HEMATOCRIT. 41.2 % (42.0-52.0); HEMOGLOBIN. 13.3 g/dL (14.0-18.0); LYMPHOCYTES % 34.4 % (20.0-50.0); MEAN CORPUSCULAR HEMOGLOBIN 27.2 pg (28.0-32.0); MEAN CORPUSCULAR HGB CONC 32.4 g/dL (31.0-37.0); MEAN CORPUSCULAR VOLUME 83.8 fL (80.0-94.0); MEAN PLATELET VOLUME 8.9 fl (7.4-10.4); MONOCYTES % 12.3 % (2.0-8.0); PLATELET 178 x1000/uL (130-400); RED BLOOD CELL COUNT 4.91 mill/uL (4.7-6.1); WHITE BLOOD COUNT 5.5 x1000/uL (4.5-11.0)
[2023-09-25 00:03] LABS: CALCIUM 9.3 mg/dL (8.7-10.4)
[2023-09-25 00:08] LABS: ETHANOL BLOOD 136 mg/dL (<10); GLUCOSE 86 mg/dL (70-105); TROPONIN I HIGH SENSITIVITY 14 ng/L (3.0-53); UREA NITROGEN BLOOD 12 mg/dL (9-23)
[2023-09-25 00:14] LABS: INR 1.1; PARTIAL THROMBOPLASTIN TIME 27.1 sec (23.4-31.0); PROTHROMBIN TIME 12.3 sec (9.6-11.0)
[2023-09-25] MEDS: MORPHINE SULFATE 4 MG/ML INJ (FOR IV/IM USE) IV NR (02:46)
[2023-09-25 04:46] VITALS: BP 146/88; PULSE 80; RESP 20; TEMP 98.4
[2023-09-26] MEDS ORDERED: MAG355OR21 MT (01:30)
== END 2023-09-25 05:53 | disposition left against medical advice (07) ==
LOC: ER 23:14
DX: R07.89 Other chest pain (principal); I10 Essential (primary) hypertension; F17.210 Nicotine dependence, cigarettes, uncomplicated; Z79.899 Other long term (current) drug therapy
CPT/HCPCS: 80048; 80320; 83880; 85025; 85610; 85730; 84484; 36415; 71045; 93005; 99285; 96374; J2270; G0480

== ENCOUNTER 2023-09-25 23:09 | Emergency (ER) | payer MEDICAID ==
[~2023-09-25] VITALS: Ht 177.8 cm; Wt 91.0 kg
[2023-09-25 23:37] VITALS: TEMP 97.9; O2SAT 98
[2023-09-25 23:59] LABS: BASOPHILS % 1.2 % (0.0-2.0); EOSINOPHILS % 2.4 % (0.0-5.0); HEMATOCRIT. 40.4 % (42.0-52.0); HEMOGLOBIN. 13.3 g/dL (14.0-18.0); LYMPHOCYTES % 32.9 % (20.0-50.0); MEAN CORPUSCULAR HEMOGLOBIN 27.7 pg (28.0-32.0); MONOCYTES % 12.1 % (2.0-8.0); NEUTROPHILS % 51.4 % (40.0-76.0); PLATELET 191 x1000/uL (130-400); RED BLOOD CELL COUNT 4.81 mill/uL (4.7-6.1); RED CELL DISTRIBUTION WIDTH 18.7 % (11.6-14.6); WHITE BLOOD COUNT 5.1 x1000/uL (4.5-11.0)
[2023-09-26 00:08] LABS: CHLORIDE 106 mEq/L (98-107); POTASSIUM 3.9 mEq/L (3.5-5.1); SODIUM 137 mEq/L (136-145)
[2023-09-26 00:09] LABS: CALCIUM 8.7 mg/dL (8.7-10.4); CARBON DIOXIDE 20 mEq/L (21-32); INR 1.1; PARTIAL THROMBOPLASTIN TIME 28.4 sec (23.4-31.0); PROTHROMBIN TIME 12.4 sec (9.6-11.0)
[2023-09-26 00:14] LABS: GLUCOSE 81 mg/dL (70-105); UREA NITROGEN BLOOD 8 mg/dL (9-23)
[2023-09-26 00:15] LABS: ETHANOL BLOOD 108 mg/dL (<10); TROPONIN I HIGH SENSITIVITY 11 ng/L (3.0-53)
[2023-09-26] MEDS ORDERED: MAG355OR21 MT (01:30)
[2023-09-26 02:40] VITALS: BP 167/95; PULSE 85; RESP 20
== END 2023-09-26 02:40 | disposition home or self-care (01) ==
LOC: ER 23:09
DX: F10.20 Alcohol dependence, uncomplicated (principal); R07.89 Other chest pain; I10 Essential (primary) hypertension; Z79.899 Other long term (current) drug therapy
CPT/HCPCS: 36415; 71045; 80048; 80320; 83880; 84484; 85025; 93005; 99285; G0480

== ENCOUNTER 2023-10-29 23:13 | Emergency (ER) | payer MEDICAID ==
[~2023-10-29] VITALS: Ht 177.8 cm; Wt 100.0 kg
[~2023-10-29 23:13] MED LIST changes: +MAG355OR21 MT
[2023-10-29 23:16] VITALS: BP 162/94; PULSE 92; RESP 16; TEMP 98.5; O2SAT 100
[2023-10-30] MEDS ORDERED: IBUP-2029 MT (00:11)
[2023-10-30] MEDS ORDERED: FURO-152 MT (00:11)
[2023-10-30] MEDS ORDERED: IBUPROFEN 600MG TABLET PO ONE (00:30)
[2023-10-30] MEDS ORDERED: FUROSEMIDE 20MG TABLET PO ONE (00:30)
== END 2023-10-30 00:32 | disposition home or self-care (01) ==
LOC: ER 23:22
DX: S93.601A Unspecified sprain of right foot, initial encounter (principal); R60.0 Localized edema; X58.XXXA Exposure to other specified factors, initial encounter; Y93.89 Activity, other specified; Y92.89 Other specified places as the place of occurrence of the external cause; Y99.8 Other external cause status
CPT/HCPCS: 73630; 99283

== ENCOUNTER 2023-12-03 15:16 | Emergency (ER) | payer OTHER ==
[~2023-12-03] VITALS: Ht 167.6 cm; Wt 100.0 kg
[~2023-12-03 15:16] MED LIST changes: +FURO-152 MT
[2023-12-03 15:24] VITALS: O2SAT 98
[2023-12-03] MEDS ORDERED: ONDANSETRON HCL 4MG/2ML INJ IV STA (15:46)
[2023-12-03] MEDS ORDERED: KETOROLAC 15MG/ML VIAL IV ONE (16:00)
[2023-12-03 16:05] LABS: BASOPHILS % 2.3 % (0.0-2.0); EOSINOPHILS % 4.1 % (0.0-5.0); HEMATOCRIT. 40.1 % (42.0-52.0); HEMOGLOBIN. 12.7 g/dL (14.0-18.0); LYMPHOCYTES % 35.4 % (20.0-50.0); MEAN CORPUSCULAR HGB CONC 31.7 g/dL (31.0-37.0); MEAN CORPUSCULAR VOLUME 81.9 fL (80.0-94.0); MEAN PLATELET VOLUME 8.9 fl (7.4-10.4); NEUTROPHILS % 44.2 % (40.0-76.0); PLATELET 170 x1000/uL (130-400); RED CELL DISTRIBUTION WIDTH 16.2 % (11.6-14.6); WHITE BLOOD COUNT 4.4 x1000/uL (4.5-11.0)
[2023-12-03 16:11] LABS: CHLORIDE 108 mEq/L (98-107); POTASSIUM 3.8 mEq/L (3.5-5.1); SODIUM 139 mEq/L (136-145)
[2023-12-03 16:12] LABS: CALCIUM 8.5 mg/dL (8.7-10.4); CARBON DIOXIDE 25 mEq/L (21-32)
[2023-12-03 16:16] LABS: INR 1.2; PARTIAL THROMBOPLASTIN TIME 27.8 sec (23.4-31.0); PROTHROMBIN TIME 12.8 sec (9.6-11.0)
[2023-12-03 16:17] LABS: CREATININE 0.9 mg/dL (0.6-1.3); ETHANOL BLOOD 165 mg/dL (<10); GLUCOSE 79 mg/dL (70-105); UREA NITROGEN BLOOD 7 mg/dL (9-23)
[2023-12-03 16:18] LABS: ALANINE AMINOTRANSFERASE 21 IU/L (10-49); TROPONIN I HIGH SENSITIVITY 17 ng/L (3.0-53)
[2023-12-03 16:19] LABS: ALBUMIN 4.1 g/dL (3.2-4.8); ASPARTATE AMINOTRANSFERASE 24 IU/L (<34); BILIRUBIN TOTAL 0.6 mg/dL (0.1-1.0); PROTEIN TOTAL 7.1 g/dL (6.0-8.3)
[2023-12-03 16:55] LABS: CLARITY URINE CLEAR (CLEAR); COLOR URINE YELLOW (YELLOW); GLUCOSE URINE NEGATIVE (NEGATIVE); KETONES URINE NEGATIVE (NEGATIVE); LEUKOCYTE ESTERASE URINE NEGATIVE (NEGATIVE); NITRITE URINE NEGATIVE (NEGATIVE); OCCULT BLOOD URINE NEGATIVE (NEGATIVE); PROTEIN URINE NEGATIVE (NEGATIVE); SPECIFIC GRAVITY URINE 1.002 (1.005-1.030); UROBILINOGEN URINE 0.2 E.U./dL (0.2-1.0)
[2023-12-03 17:13] LABS: *AMPHETAMINES SCREEN URINE NEGATIVE (NEGATIVE); *BARBITURATES SCREEN URINE NEGATIVE (NEGATIVE); *BENZODIAZEPINES SCREEN URINE NEGATIVE (NEGATIVE); *COCAINE SCREEN URINE NEGATIVE (NEGATIVE); METHADONE URINE SCREEN NEGATIVE (NEGATIVE); OPIATES URINE SCREEN NEGATIVE (NEGATIVE)
[2023-12-03 17:14] LABS: CANNABINOID URINE SCREEN NEGATIVE (NEGATIVE); ECSTASY MDMA SCREEN URINE NEGATIVE (NEGATIVE); PHENCYCLIDINE URINE SCREEN NEGATIVE (NEGATIVE)
[2023-12-03] MEDS: SODIUM CHLORIDE 0.9% 1,000 ML IV ONE (18:45)
[2023-12-03] MEDS: ONDANSETRON HCL 4MG/2ML INJ IV NR (18:46)
[2023-12-03] MEDS: KETOROLAC 15MG/ML VIAL IV NR (18:46)
[2023-12-03 18:50] VITALS: BP 139/76; PULSE 101; RESP 12; TEMP 98.7
[2023-12-03] MEDS ORDERED: FAMO-135 PO (20:40)
== END 2023-12-03 21:50 | disposition home or self-care (01) ==
LOC: ER 15:16
DX: F10.129 Alcohol abuse with intoxication, unspecified (principal); R10.9 Unspecified abdominal pain; I10 Essential (primary) hypertension; R41.82 Altered mental status, unspecified; Z79.899 Other long term (current) drug therapy; Y90.6 Blood alcohol level of 120-199 mg/100 ml
CPT/HCPCS: 80053; 80305; 81003; 80320; 83690; 85025; 85610; 85730; 84484; 36415; 71045; 70450; 74176; 93005; 96361; 96374; 96375; 99285; J1885; J2405; J7030; G0480

== ENCOUNTER 2023-12-11 00:55 | Emergency (ER) | payer OTHER ==
[~2023-12-11] VITALS: Ht 175.3 cm; Wt 118.0 kg
[~2023-12-11 00:55] MED LIST changes: +FAMO-135 PO
[2023-12-11 01:10] VITALS: BP 153/92; PULSE 79; RESP 18; TEMP 96.4; O2SAT 98
[2023-12-11 02:42] LABS: BASOPHILS % 1.4 % (0.0-2.0); EOSINOPHILS % 2.4 % (0.0-5.0); HEMATOCRIT. 38.8 % (42.0-52.0); HEMOGLOBIN. 12.2 g/dL (14.0-18.0); MEAN CORPUSCULAR HEMOGLOBIN 25.8 pg (28.0-32.0); MEAN CORPUSCULAR HGB CONC 31.4 g/dL (31.0-37.0); MEAN CORPUSCULAR VOLUME 82.2 fL (80.0-94.0); MEAN PLATELET VOLUME 9.8 fl (7.4-10.4); NEUTROPHILS % 45.2 % (40.0-76.0); PLATELET 210 x1000/uL (130-400); RED BLOOD CELL COUNT 4.71 mill/uL (4.7-6.1); RED CELL DISTRIBUTION WIDTH 16.3 % (11.6-14.6)
[2023-12-11 03:05] LABS: CHLORIDE 106 mEq/L (98-107); POTASSIUM 3.7 mEq/L (3.5-5.1); SODIUM 138 mEq/L (136-145)
[2023-12-11 03:06] LABS: CALCIUM 8.6 mg/dL (8.7-10.4); CARBON DIOXIDE 26 mEq/L (21-32)
[2023-12-11 03:06] LABS: *AMPHETAMINES SCREEN URINE NEGATIVE (NEGATIVE); *BARBITURATES SCREEN URINE NEGATIVE (NEGATIVE); *BENZODIAZEPINES SCREEN URINE NEGATIVE (NEGATIVE); *COCAINE SCREEN URINE NEGATIVE (NEGATIVE); METHADONE URINE SCREEN NEGATIVE (NEGATIVE)
[2023-12-11 03:07] LABS: CANNABINOID URINE SCREEN NEGATIVE (NEGATIVE); ECSTASY MDMA SCREEN URINE NEGATIVE (NEGATIVE); OPIATES URINE SCREEN NEGATIVE (NEGATIVE); PHENCYCLIDINE URINE SCREEN NEGATIVE (NEGATIVE)
[2023-12-11 03:11] LABS: ETHANOL BLOOD 148 mg/dL (<10); GLUCOSE 87 mg/dL (70-105); UREA NITROGEN BLOOD 9 mg/dL (9-23)
[2023-12-11 03:12] LABS: TROPONIN I HIGH SENSITIVITY 17 ng/L (3.0-53)
[2023-12-11 03:13] LABS: CREATINE KINASE 322 IU/L (46-171)
[2023-12-11] MEDS ORDERED: BACITRACIN 14GM TUBE TOP NR (06:15)
== END 2023-12-11 07:49 | disposition left against medical advice (07) ==
LOC: ER 00:57
DX: S00.511A Abrasion of lip, initial encounter (principal); R55 Syncope and collapse; F10.129 Alcohol abuse with intoxication, unspecified; I10 Essential (primary) hypertension; Z79.899 Other long term (current) drug therapy; W18.39XA Other fall on same level, initial encounter; Y93.89 Activity, other specified; Y92.89 Other specified places as the place of occurrence of the external cause; Y99.8 Other external cause status; Y90.6 Blood alcohol level of 120-199 mg/100 ml
CPT/HCPCS: 80305; 80048; 80320; 82550; 83880; 85025; 84484; 36415; 71045; 70450; 72125; 93005; 99285; Z7610 ×2; G0480

== ENCOUNTER 2023-12-17 22:25 | Emergency (ER) | payer OTHER ==
[~2023-12-17] VITALS: Ht 172.7 cm; Wt 98.0 kg
[2023-12-17 22:30] VITALS: O2SAT 95
[2023-12-17 23:58] LABS: HEMATOCRIT. 37.4 % (42.0-52.0); HEMOGLOBIN. 11.8 g/dL (14.0-18.0); MEAN CORPUSCULAR HEMOGLOBIN 25.6 pg (28.0-32.0); MEAN CORPUSCULAR HGB CONC 31.5 g/dL (31.0-37.0); MEAN CORPUSCULAR VOLUME 81.5 fL (80.0-94.0); MEAN PLATELET VOLUME 9.2 fl (7.4-10.4); PLATELET 166 x1000/uL (130-400); RED BLOOD CELL COUNT 4.59 mill/uL (4.7-6.1); RED CELL DISTRIBUTION WIDTH 16.5 % (11.6-14.6); WHITE BLOOD COUNT 3.8 x1000/uL (4.5-11.0)
[2023-12-18 00:03] LABS: CHLORIDE 106 mEq/L (98-107); DIFFERENTIAL COMMENT 1; POTASSIUM 3.5 mEq/L (3.5-5.1); SODIUM 135 mEq/L (136-145)
[2023-12-18 00:04] LABS: CARBON DIOXIDE 27 mEq/L (21-32)
[2023-12-18 00:05] LABS: CALCIUM 8.3 mg/dL (8.7-10.4)
[2023-12-18 00:09] LABS: CREATININE 0.9 mg/dL (0.6-1.3); GLUCOSE 119 mg/dL (70-105)
[2023-12-18 00:10] LABS: TROPONIN I HIGH SENSITIVITY 19 ng/L (3.0-53); UREA NITROGEN BLOOD 11 mg/dL (9-23)
[2023-12-18 02:31] LABS: TROPONIN I HIGH SENSITIVITY 22 ng/L (3.0-53)
[2023-12-18 04:21] VITALS: BP 139/98; PULSE 62; RESP 18; TEMP 98.3
[2023-12-18 04:29] LABS: PLATELET ESTIMATE NORMAL
== END 2023-12-18 04:33 | disposition home or self-care (01) ==
LOC: ER 22:25
DX: R07.89 Other chest pain (principal); I10 Essential (primary) hypertension; F10.20 Alcohol dependence, uncomplicated; Z79.899 Other long term (current) drug therapy; Y90.9 Presence of alcohol in blood, level not specified
CPT/HCPCS: 36415; 80048; 84484; 85025; 99283

== ENCOUNTER 2023-12-25 00:06 | Emergency (ER) | payer OTHER ==
[~2023-12-25] VITALS: Ht 175.3 cm; Wt 90.0 kg
[2023-12-25 00:10] VITALS: TEMP 98.4; O2SAT 100
[2023-12-25 01:31] LABS: EOSINOPHILS % 2.7 % (0.0-5.0); HEMOGLOBIN. 13.5 g/dL (14.0-18.0); LYMPHOCYTES % 37.4 % (20.0-50.0); MEAN CORPUSCULAR HEMOGLOBIN 26.1 pg (28.0-32.0); MEAN CORPUSCULAR HGB CONC 32.1 g/dL (31.0-37.0); MEAN CORPUSCULAR VOLUME 81.4 fL (80.0-94.0); NEUTROPHILS % 45.9 % (40.0-76.0); PLATELET 184 x1000/uL (130-400); RED BLOOD CELL COUNT 5.16 mill/uL (4.7-6.1); WHITE BLOOD COUNT 4.3 x1000/uL (4.5-11.0)
[2023-12-25 01:34] LABS: CHLORIDE 106 mEq/L (98-107); POTASSIUM 3.9 mEq/L (3.5-5.1); SODIUM 136 mEq/L (136-145)
[2023-12-25 01:35] LABS: CARBON DIOXIDE 24 mEq/L (21-32)
[2023-12-25 01:36] LABS: CALCIUM 8.9 mg/dL (8.7-10.4)
[2023-12-25 01:40] LABS: CREATININE 0.9 mg/dL (0.6-1.3); GLUCOSE 90 mg/dL (70-105); TROPONIN I HIGH SENSITIVITY 21 ng/L (3.0-53)
[2023-12-25 01:41] LABS: UREA NITROGEN BLOOD 10 mg/dL (9-23)
[2023-12-25 01:42] LABS: ALANINE AMINOTRANSFERASE 19 IU/L (10-49); ALBUMIN 4.2 g/dL (3.2-4.8); ASPARTATE AMINOTRANSFERASE 26 IU/L (<34)
[2023-12-25 01:43] LABS: BILIRUBIN TOTAL 0.6 mg/dL (0.1-1.0); PROTEIN TOTAL 7.2 g/dL (6.0-8.3)
[2023-12-25 02:51] VITALS: BP 154/97; PULSE 74; RESP 14; O2SAT 99
[2023-12-25] MEDS: ASPIRIN 81MG EC TABLET PO ONE (03:37)
== END 2023-12-25 04:00 | disposition short-term general hospital (02) ==
LOC: ER 00:06 → EDBEDREQ 02:37 → ER 04:00
DX: R07.9 Chest pain, unspecified (principal); I10 Essential (primary) hypertension; F12.90 Cannabis use, unspecified, uncomplicated; F10.20 Alcohol dependence, uncomplicated; Z79.899 Other long term (current) drug therapy
CPT/HCPCS: 80053; 83880; 85025; 84484; 36415; 71045; 93005; 99285; Z7610

== ENCOUNTER 2024-01-18 02:58 | Emergency (ER) | payer OTHER ==
[~2024-01-18] VITALS: Ht 172.7 cm; Wt 114.0 kg
[2024-01-18 03:10] VITALS: TEMP 98.2; O2SAT 98
[2024-01-18 03:55] LABS: DIFFERENTIAL COMMENT 0; EOSINOPHILS % 2.7 % (0.0-5.0); HEMATOCRIT. 43.4 % (42.0-52.0); HEMOGLOBIN. 13.8 g/dL (14.0-18.0); MEAN CORPUSCULAR HEMOGLOBIN 25.5 pg (28.0-32.0); MEAN CORPUSCULAR HGB CONC 31.8 g/dL (31.0-37.0); MEAN CORPUSCULAR VOLUME 79.9 fL (80.0-94.0); MEAN PLATELET VOLUME 9.4 fl (7.4-10.4); MONOCYTES % 10.8 % (2.0-8.0); NEUTROPHILS % 57.5 % (40.0-76.0); PLATELET 198 x1000/uL (130-400); RED BLOOD CELL COUNT 5.44 mill/uL (4.7-6.1); RED CELL DISTRIBUTION WIDTH 17.3 % (11.6-14.6); WHITE BLOOD COUNT 4.2 x1000/uL (4.5-11.0)
[2024-01-18 04:00] LABS: CHLORIDE 106 mEq/L (98-107); SODIUM 139 mEq/L (136-145)
[2024-01-18 04:01] LABS: CALCIUM 8.9 mg/dL (8.7-10.4); CARBON DIOXIDE 27 mEq/L (21-32)
[2024-01-18 04:06] LABS: ETHANOL BLOOD 79 mg/dL (<10); GLUCOSE 83 mg/dL (70-105); UREA NITROGEN BLOOD 9 mg/dL (9-23)
[2024-01-18 04:08] LABS: TROPONIN I HIGH SENSITIVITY 13 ng/L (3.0-53)
[2024-01-18 04:14] LABS: INR 1.1; PARTIAL THROMBOPLASTIN TIME 28.5 sec (23.4-31.0); PROTHROMBIN TIME 12.5 sec (9.6-11.0)
[2024-01-18] MEDS: MAGNESIUM/ALUMINUM HYDROXIDE/SIMETHICONE 30ML UDC PO ONE (04:28)
[2024-01-18] MEDS: MAGNESIUM/ALUMINUM HYDROXIDE/SIMETHICONE 30ML UDC PO NR (04:33)
[2024-01-18 06:16] LABS: TROPONIN I HIGH SENSITIVITY 13 ng/L (3.0-53)
[2024-01-18 06:41] VITALS: BP 146/86; PULSE 62; RESP 18; O2SAT 100
== END 2024-01-18 06:42 | disposition home or self-care (01) ==
LOC: ER 02:58
DX: R07.89 Other chest pain (principal); K29.20 Alcoholic gastritis without bleeding; F12.10 Cannabis abuse, uncomplicated; I10 Essential (primary) hypertension; Z79.899 Other long term (current) drug therapy; Y90.3 Blood alcohol level of 60-79 mg/100 ml
CPT/HCPCS: 36415; 71045; 80048; 80320; 83880; 84484; 85025; 93005; 99284; G0480

== ENCOUNTER 2024-01-25 20:35 | Emergency (ER) | payer OTHER ==
[~2024-01-25] VITALS: Ht 172.7 cm; Wt 114.0 kg
[2024-01-25 20:51] VITALS: TEMP 98; O2SAT 98
[2024-01-26] MEDS ORDERED: CEFTRIAXONE 1GM/50ML 50 ML IV ONE
[2024-01-26] MEDS: CEFTRIAXONE 1GM/50ML 50 ML IV NR (03:14)
[2024-01-26 03:25] LABS: MEAN CORPUSCULAR HEMOGLOBIN 25.7 pg (28.0-32.0); MEAN CORPUSCULAR HGB CONC 32.5 g/dL (31.0-37.0); MEAN CORPUSCULAR VOLUME 79.2 fL (80.0-94.0); MEAN PLATELET VOLUME 8.9 fl (7.4-10.4); PLATELET 179 x1000/uL (130-400); RED BLOOD CELL COUNT 4.67 mill/uL (4.7-6.1); RED CELL DISTRIBUTION WIDTH 17.5 % (11.6-14.6); WHITE BLOOD COUNT 3.4 x1000/uL (4.5-11.0)
[2024-01-26 03:28] LABS: DIFFERENTIAL COMMENT 1
[2024-01-26 03:32] LABS: CARBON DIOXIDE 26 mEq/L (21-32); CHLORIDE 106 mEq/L (98-107); POTASSIUM 3.9 mEq/L (3.5-5.1); SODIUM 137 mEq/L (136-145)
[2024-01-26 03:33] LABS: CALCIUM 8.6 mg/dL (8.7-10.4)
[2024-01-26 03:37] LABS: CREATININE 0.9 mg/dL (0.6-1.3); GLUCOSE 92 mg/dL (70-105); INR 1.2; PARTIAL THROMBOPLASTIN TIME 26.5 sec (23.4-31.0)
[2024-01-26 03:38] LABS: UREA NITROGEN BLOOD 10 mg/dL (9-23)
[2024-01-26 03:39] LABS: ALANINE AMINOTRANSFERASE 21 IU/L (10-49); ALBUMIN 3.8 g/dL (3.2-4.8); ASPARTATE AMINOTRANSFERASE 39 IU/L (<34); TROPONIN I HIGH SENSITIVITY 43 ng/L (3.0-53)
[2024-01-26 03:40] LABS: BILIRUBIN TOTAL 0.7 mg/dL (0.1-1.0); PROTEIN TOTAL 6.5 g/dL (6.0-8.3)
[2024-01-26 03:51] LABS: ETHANOL BLOOD < 10 mg/dL (<10)
[2024-01-26] MEDS: AZITHROMYCIN 500MG/250ML 250 ML IV SCH (04:00)
[2024-01-26 04:33] LABS: PLATELET ESTIMATE NORMAL
[2024-01-26] MEDS: NITROGLYCERIN 0.4MG TABLET SL SL ONE (04:34)
[2024-01-26] MEDS: ASPIRIN 81MG TABLET PO ONE (04:44)
[2024-01-26] MEDS ORDERED: MORPHINE SULFATE 4 MG/ML INJ (FOR IV/IM USE) IV ONE (04:45)
[2024-01-26 05:14] VITALS: BP 168/78; PULSE 68; RESP 18; O2SAT 98
== END 2024-01-26 05:26 | disposition home or self-care (01) ==
LOC: ER 20:35 → EDBEDREQ 01-26 04:43 → CANBEDREQ 01-26 05:23 → ER 01-26 05:26
DX: R07.89 Other chest pain (principal); R09.89 Other specified symptoms and signs involving the circulatory and respiratory systems; F10.20 Alcohol dependence, uncomplicated; I10 Essential (primary) hypertension; F12.10 Cannabis abuse, uncomplicated; Z79.899 Other long term (current) drug therapy; Z79.82 Long term (current) use of aspirin; Z88.6 Allergy status to analgesic agent; Z79.1 Long term (current) use of non-steroidal anti-inflammatories (NSAID); Y90.0 Blood alcohol level of less than 20 mg/100 ml
CPT/HCPCS: 36415; 71045; 93005; 99291; 80053; 80320; 83880; 83690; 85025; 85610; 85730; 84484; 96365; Z7610; J0456; J0696; J2270; G0480

== ENCOUNTER 2024-01-29 19:47 | Emergency (ER) | payer OTHER ==
[~2024-01-29] VITALS: Ht 177.8 cm; Wt 90.0 kg
[2024-01-29 19:53] VITALS: TEMP 98.5; O2SAT 99
[2024-01-29] MEDS ORDERED: DICYCLOMINE 10 MG/5 ML ORAL SYR PO STA (20:00)
[2024-01-29 20:29] LABS: HEMATOCRIT. 42.4 % (42.0-52.0); HEMOGLOBIN. 13.5 g/dL (14.0-18.0); MEAN CORPUSCULAR HEMOGLOBIN 25.8 pg (28.0-32.0); MEAN CORPUSCULAR HGB CONC 31.8 g/dL (31.0-37.0); MEAN CORPUSCULAR VOLUME 81.2 fL (80.0-94.0); MEAN PLATELET VOLUME 9.4 fl (7.4-10.4); PLATELET 207 x1000/uL (130-400); RED BLOOD CELL COUNT 5.22 mill/uL (4.7-6.1); RED CELL DISTRIBUTION WIDTH 18.1 % (11.6-14.6); WHITE BLOOD COUNT 4.8 x1000/uL (4.5-11.0)
[2024-01-29 20:30] LABS: DIFFERENTIAL COMMENT 1
[2024-01-29 20:34] LABS: CHLORIDE 115 mEq/L (98-107); SODIUM 143 mEq/L (136-145)
[2024-01-29 20:35] LABS: CARBON DIOXIDE 20 mEq/L (21-32)
[2024-01-29 20:36] LABS: CALCIUM 6.5 mg/dL (8.7-10.4)
[2024-01-29 20:40] LABS: CREATININE 0.8 mg/dL (0.6-1.3); GLUCOSE 56 mg/dL (70-105)
[2024-01-29] MEDS: SODIUM CHLORIDE 0.9% 1,000 ML IV ONE (20:40)
[2024-01-29 20:41] LABS: ETHANOL BLOOD 129 mg/dL (<10); TROPONIN I HIGH SENSITIVITY 10 ng/L (3.0-53); UREA NITROGEN BLOOD 7 mg/dL (9-23)
[2024-01-29 20:42] LABS: CLARITY URINE CLEAR (CLEAR); COLOR URINE YELLOW (YELLOW); GLUCOSE URINE NEGATIVE (NEGATIVE); KETONES URINE NEGATIVE (NEGATIVE); LEUKOCYTE ESTERASE URINE NEGATIVE (NEGATIVE); NITRITE URINE NEGATIVE (NEGATIVE); OCCULT BLOOD URINE NEGATIVE (NEGATIVE); PH URINE 5.5 (4.5-8.0); PROTEIN URINE NEGATIVE (NEGATIVE); SPECIFIC GRAVITY URINE 1.003 (1.005-1.030)
[2024-01-29] MEDS: ONDANSETRON HCL 4MG/2ML INJ IV STA (20:58)
[2024-01-29] MEDS: FAMOTIDINE 20MG/2ML VIAL IV ONE (20:59)
[2024-01-29] MEDS: DICYCLOMINE 10 MG/5 ML ORAL SYR PO NR (21:07)
[2024-01-29] MEDS: MAGNESIUM/ALUMINUM HYDROXIDE/SIMETHICONE 30ML UDC PO STA (21:07)
[2024-01-29] MEDS: KCL 10MEQ/50ML PREMIX 50 ML IV SCH (21:15)
[2024-01-29] MEDS: DEXTROSE 50% WATER 50ML SYRINGE IV ONE (21:26)
[2024-01-29 21:27] LABS: ANISOCYTOSIS 1+; PLATELET ESTIMATE NORMAL
[2024-01-29 21:45] LABS: INR 1.2; PROTHROMBIN TIME 12.7 sec (9.6-11.0)
[2024-01-29] MEDS: FOLIC ACID 1 MG, THIAMINE HCL 100 MG, MVI, ADULT NO.1 10 ML in DEXTROSE 5% WATER 1,000 ML IV ONE (21:55)
[2024-01-30 00:18] VITALS: BP 141/78; PULSE 57; RESP 15; O2SAT 98
== END 2024-01-30 00:25 | disposition home or self-care (01) ==
LOC: ER 19:47
DX: F10.229 Alcohol dependence with intoxication, unspecified (principal); E87.6 Hypokalemia; I10 Essential (primary) hypertension; K29.70 Gastritis, unspecified, without bleeding; F12.10 Cannabis abuse, uncomplicated; Z79.82 Long term (current) use of aspirin; Z79.1 Long term (current) use of non-steroidal anti-inflammatories (NSAID); Y90.6 Blood alcohol level of 120-199 mg/100 ml
CPT/HCPCS: 80048; 81003; 80320; 82962; 83690; 85025; 85610; 84484; 36415; 71045; 93005; 96368; 96361; 96365; 96366; 96375; 99285; J3490 ×3; J2405; J3480; J3411; J7070; J7030; Z7610 ×3; G0480

== ENCOUNTER 2024-11-04 00:20 | Emergency (ER) | payer OTHER ==
[~2024-11-04] VITALS: Ht 175.3 cm; Wt 95.0 kg
[~2024-11-04 00:20] MED LIST changes: -AMLO10TA80 MT; +ATOR40TA70 MT; -CELE-146 MT; -DOCU-150 PO; -FAMO-135 PO; -FAMO20TA8 PO; -FERR325T23 PO; -FURO-152 MT; -IBUP-2029 MT; +LOSA50TA41 PO; -MAG355OR21 MT; +PROT40 MT; -TOPUD MT
[2024-11-04 00:28] VITALS: TEMP 36.8; O2SAT 99
[2024-11-04 01:44] LABS: *AMPHETAMINES SCREEN URINE NEGATIVE (NEGATIVE); *BARBITURATES SCREEN URINE NEGATIVE (NEGATIVE); *BENZODIAZEPINES SCREEN URINE NEGATIVE (NEGATIVE); *COCAINE SCREEN URINE NEGATIVE (NEGATIVE); CANNABINOID URINE SCREEN NEGATIVE (NEGATIVE); METHADONE URINE SCREEN NEGATIVE (NEGATIVE); OPIATES URINE SCREEN NEGATIVE (NEGATIVE); PHENCYCLIDINE URINE SCREEN NEGATIVE (NEGATIVE)
[2024-11-04 01:45] LABS: ECSTASY MDMA SCREEN URINE NEGATIVE (NEGATIVE)
[2024-11-04 02:25] LABS: BASOPHILS % 1.4 % (0.0-2.0); DIFFERENTIAL COMMENT 0; EOSINOPHILS % 3.6 % (0.0-5.0); HEMATOCRIT. 39.6 % (42.0-52.0); HEMOGLOBIN. 12.7 g/dL (14.0-18.0); MEAN CORPUSCULAR HEMOGLOBIN 25.9 pg (28.0-32.0); MEAN CORPUSCULAR VOLUME 81.1 fL (80.0-94.0); MEAN PLATELET VOLUME 9.9 fl (7.4-10.4); MONOCYTES % 11.8 % (2.0-8.0); NEUTROPHILS % 41.2 % (40.0-76.0); PLATELET 173 x1000/uL (130-400); RED BLOOD CELL COUNT 4.88 mill/uL (4.7-6.1); RED CELL DISTRIBUTION WIDTH 18.6 % (11.6-14.6); WHITE BLOOD COUNT 4.3 x1000/uL (4.5-11.0)
[2024-11-04 02:42] LABS: CHLORIDE 109 mEq/L (98-107); POTASSIUM 3.9 mEq/L (3.5-5.1); SODIUM 143 mEq/L (136-145)
[2024-11-04 02:43] LABS: CARBON DIOXIDE 25 mEq/L (21-32)
[2024-11-04 02:48] LABS: CREATININE 0.8 mg/dL (0.6-1.3); GLUCOSE 82 mg/dL (70-105); UREA NITROGEN BLOOD 7 mg/dL (9-23)
[2024-11-04 02:49] LABS: ETHANOL BLOOD 205 mg/dL (<10); TROPONIN I HIGH SENSITIVITY 13 ng/L (3.0-53)
[2024-11-04 04:15] VITALS: BP 143/87; PULSE 58; RESP 13; O2SAT 98
[2024-11-04 04:39] LABS: TROPONIN I HIGH SENSITIVITY 13 ng/L (3.0-53)
== END 2024-11-04 04:32 | disposition short-term general hospital (02) ==
LOC: ER 00:20
DX: R07.89 Other chest pain (principal); F10.20 Alcohol dependence, uncomplicated; I11.0 Hypertensive heart disease with heart failure; I50.9 Heart failure, unspecified; I48.91 Unspecified atrial fibrillation; I67.82 Cerebral ischemia; Z79.82 Long term (current) use of aspirin; Z79.899 Other long term (current) drug therapy
CPT/HCPCS: 80305; 80048; 80320; 83880; 85025; 84484; 36415; 71045; 70450; 99285; Z7610 ×3; A4606; G0480

== ENCOUNTER 2025-01-03 22:22 | Emergency (ER) | payer OTHER ==
[~2025-01-03] VITALS: Ht 180.3 cm; Wt 105.0 kg
[2025-01-03 22:24] VITALS: O2SAT 97
[2025-01-03 22:59] LABS: BASOPHILS % 0.7 % (0.0-2.0); EOSINOPHILS % 4.8 % (0.0-5.0); HEMATOCRIT. 37.4 % (42.0-52.0); HEMOGLOBIN. 11.8 g/dL (14.0-18.0); LYMPHOCYTES % 45.3 % (20.0-50.0); MEAN PLATELET VOLUME 8.9 fl (7.4-10.4); MONOCYTES % 10.0 % (2.0-8.0); NEUTROPHILS % 39.2 % (40.0-76.0); PLATELET 210 x1000/uL (130-400); RED BLOOD CELL COUNT 4.79 mill/uL (4.7-6.1); RED CELL DISTRIBUTION WIDTH 17.4 % (11.6-14.6)
[2025-01-03 23:10] LABS: INR 1.1
[2025-01-03 23:14] LABS: CREATININE 0.9 mg/dL (0.6-1.3); UREA NITROGEN BLOOD 14 mg/dL (9-23)
[2025-01-03 23:16] LABS: ASPARTATE AMINOTRANSFERASE 28 IU/L (<34); BILIRUBIN DIRECT 0.1 mg/dL (<=3.0); BILIRUBIN TOTAL 0.3 mg/dL (0.1-1.0); PROTEIN TOTAL 7.0 g/dL (6.0-8.3)
[2025-01-03 23:19] LABS: ETHANOL BLOOD 260 mg/dL (<10)
[2025-01-03 23:24] LABS: TROPONIN I HIGH SENSITIVITY 70 ng/L (3.0-53)
[2025-01-04] MEDS: MAGNESIUM/ALUMINUM HYDROXIDE/SIMETHICONE 30ML UDC PO NR (00:48)
[2025-01-04 02:03] VITALS: BP 148/78; PULSE 60; RESP 13; TEMP 36.4; O2SAT 98
== END 2025-01-04 02:32 | disposition short-term general hospital (02) ==
LOC: ER 22:22 → EDBEDREQ 01-04 00:27 → ER 01-04 02:32 → CMPBEDREQ 01-04 07:43
DX: F10.229 Alcohol dependence with intoxication, unspecified (principal); I11.0 Hypertensive heart disease with heart failure; I50.9 Heart failure, unspecified; Z79.899 Other long term (current) drug therapy; Y90.8 Blood alcohol level of 240 mg/100 ml or more
CPT/HCPCS: 36415; 71045; 80048; 80076; 80320; 83880; 84484; 85025; 93005; 99285; G0480